=== PATIENT | female | born 1975 | race Caucasian/White ===

== ENCOUNTER 2019-10-23 11:43 | Emergency (ER) | payer BC ==
[2019-10-23] MEDS ORDERED: BABY ASPIRIN 81 MG CHEW PO ONE (11:55)
[2019-10-23] MEDS ORDERED: Nitrostat 0.4 MG (ED) SL ONE ×2 (11:55→12:00)
[2019-10-23] MEDS ORDERED: BABY ASPIRIN 81 MG CHEW ONE (12:00)
--- NOTE | 2019-10-23 12:06 | ERPHSYRPT ---
- History of Present Illness Time Seen by Provider: 10/23/19 11:54 Historian: patient Exam Limitations: no limitations Patient Subjective Stated Complaint: pt here for chest pain off and on for 4 days now, pain to epigastric area, that radiates to left breast, with chills, no fever, she states she has been off work with the [employer] she denies being under stress Triage Nursing Assessment: pt alert,with mask in place walked in, resp easy, skin w/d/p. anxious, no cough . no edema Timing/Duration: day(s) (4 days) Activities at Onset: none Quality: pressure Location: central Chest Pain Radiation: no radiation (L inferior breast) Severity of Pain-Max: none (8) Severity of Pain-Current: none (12/29) Modifying Factors: Improves With: nothing Associated Symptoms: shortness of breath, diaphoresis, No nausea, No vomiting Prior Chest Pain/Cardiac Workup: no prior chest pain Nitro Today/Relief: no nitro taken today Aspirin Treatment Today: 81 mg x 1 Allergies/Adverse Reactions: sulfamethoxazole [From Bactrim] Allergy (Verified 10/23/19 11:45) trimethoprim [From Bactrim] Allergy (Verified 10/23/19 11:45) Home Medications: Lisinopril 5 mg PO DAILY 03/13/12 [History] Hx Tetanus, Diphtheria Vaccination/Date Given: No (PT UNSURE) Hx Influenza Vaccination/Date Given: Yes Hx Pneumococcal Vaccination/Date Given: No Immunizations Up to Date: Yes Travel Risk - International Travel Have you traveled outside of the country in past 3 weeks: No Have you or anyone close to you been diagnosed with or: No Do your reside in a community with a known COVID-19 case?: Yes If Yes where:: [place] - Coronavirus Screening Has patient experienced Coronavirus symptoms: No - Review of Systems Constitutional: Chills Eyes: No Symptoms Ears, Nose, & Throat: No Symptoms Respiratory: Dyspnea Cardiac: Chest Pain, Palpitations, No Edema, No Syncope, No Orthopnea, No PND Abdominal/Gastrointestinal: No Symptoms Genitourinary Symptoms: No Symptoms Musculoskeletal: No Symptoms Skin: No Symptoms Neurological: No Symptoms Psychological: No Symptoms Endocrine: No Symptoms Hematologic/Lymphatic: No Symptoms Immunological/Allergic: No Symptoms - Past Medical History Pertinent Past Medical History: Yes Neurological History: No Pertinent History ENT History: No Pertinent History Cardiac History: Hypertension Respiratory History: No Pertinent History Endocrine Medical History: Liver Disease Musculoskeletal History: Rheumatoid Arthritis GI Medical History: GERD, Other History: No Pertinent History Psycho-Social History: No Pertinent History Female Reproductive Disorders: Other Other Medical History: fatty liver - Past Surgical History Past Surgical History: Yes Neuro Surgical History: No Pertinent History Cardiac: No Pertinent History Respiratory: No Pertinent History Gastrointestinal: Cholecystectomy Musculoskeletal: Orthopedic Surgery Female Surgical History: Section - Social History Smoking Status: Former smoker (<1ppd until 04) Exposure to second hand smoke: No Alcohol Use: None Drug Use: none Patient Lives Alone: No Significant Family History: other (Grandmother w CHF) - Female History Hx Last Menstrual Period: october 10 Hx Now: No - Nursing Vital Signs Nursing Vital Signs: Initial Vital Signs Temperature 98.3 F 10/23/19 11:48 Pulse Rate 108 H 10/23/19 11:48 Respiratory Rate 20 10/23/19 11:48 Blood Pressure 201/115 10/23/19 11:48 O2 Sat by Pulse Oximetry 100 10/23/19 11:48 Pain Scale Pain Intensity 2 - Physical Exam General Appearance: no apparent distress, anxiety Eye Exam: PERRL/EOMI, eyes nml inspection Ears, Nose, Throat Exam: normal ENT inspection, TMs normal, pharynx normal, moist mucous membranes Neck Exam: normal inspection, non-tender, supple Respiratory Exam: normal breath sounds, lungs clear, airway intact, No chest tenderness, No respiratory distress, No diminished breath sounds, No accessory muscle use, No prolonged expirations, No crackles/rales, No rhonchi, No wheezing , No stridor Cardiovascular Exam: normal heart sounds, tachycardia, capillary refill <2 sec, No murmur, No edema, No pulse deficit Gastrointestinal/Abdomen Exam: soft, normal bowel sounds, No tenderness, No distention Pelvic Exam: not done Rectal Exam: deferred Back Exam: normal inspection, normal range of motion Extremity Exam: normal inspection, normal range of motion Neurologic Exam: alert, oriented x 3, cooperative, wireless sales consultant II-XII nml as tested, nml cerebellar function, sensation nml, No motor deficits, No sensory deficit, No disoriented, No confusion Skin Exam: normal color Lymphatic Exam: No adenopathy SpO2 Interpretation: normal SpO2: 97 O2 Delivery: Room Air - Course Nursing assessment & vital signs reviewed: Yes EKG Interpreted by Me: RATE (109 sinus tach), Other (Sinus tach/Poor R wave progression/Prolonged QTc) - Radiology Exams Chest X-ray Interpretation: Interpreted by me, Negative Ordered Tests: Active Orders 24 hr Category Date Time Status EKG-ER Only STAT Care 10/23/19 11:55 Active IV Insertion STAT Care 10/23/19 11:55 Active Isolation, Initiate & Maintain Q4H Care 10/23/19 11:56 Active Pulse Oximetry (ED) STAT Care 10/23/19 11:55 Active CHEST 1 VIEW (PORTABLE) Stat Exams 10/23/19 11:56 Taken CBC W DIFF Stat Lab 10/23/19 11:45 Completed CMP Stat Lab 10/23/19 11:45 Completed D-DIMER QUANTITATIVE Stat Lab 10/23/19 11:45 Completed PROTIME WITH INR Stat Lab 10/23/19 11:45 Completed PTT Stat Lab 10/23/19 11:45 Completed TROPONIN Q3H Lab 10/23/19 11:45 Completed TROPONIN Q3H Lab 10/23/19 15:02 Completed TROPONIN Q3H Lab 10/23/19 18:00 Ordered TROPONIN Q3H Lab 10/23/19 21:00 Ordered TROPONIN Q3H Lab 10/24/19 00:00 Ordered Medication Summary Discontinued Medications Generic Name Dose Route Start Last Admin Trade Name Freq PRN Reason Stop Dose Admin Aspirin 324 mg 10/23/19 11:55 10/23/19 12:02 Baby Aspirin 81 Mg Chew PO 10/23/19 11:56 324 mg STAT ONE Administration Aspirin Confirm 10/23/19 12:00 Baby Aspirin 81 Mg Chew Administered 10/23/19 12:01 Dose 324 mg .ROUTE .STK-MED ONE Nitroglycerin 0.4 mg 10/23/19 11:55 10/23/19 12:02 Nitrostat 0.4 Mg (Ed) SL 10/23/19 11:56 0.4 mg STAT ONE Administration Nitroglycerin Confirm 10/23/19 12:00 Nitrostat 0.4 Mg (Ed) Administered 10/23/19 12:01 Dose 0.4 mg SL .STK-MED ONE Lab/Rad Data: Laboratory Result Diagrams 10/23/19 11:45 05/03/20 11:45 Laboratory Results 10/23/19 10/23/19 10/23/19 Range/Units 15:02 11:45 11:45 WBC (4.0-10.5) K/mm3 RBC (4.1-5.4) M/mm3 Hgb (12.0-16.0) gm/dl Hct (35-47) % MCV (78-100) fl MCH (26-32) pg MCHC (32-36) g/dl RDW (11.5-14.0) % Plt Count (150-450) K/mm3 MPV (7.5-11.0) fl Gran % (36.0-66.0) % Eos # (Auto) (0-0.5) Absolute Lymphs (auto) (1.0-4.6) Absolute Monos (auto) (0.0-1.3) Lymphocytes % (24.0-44.0) % Monocytes % (0.0-12.0) % Eosinophils % (0.00-5.0) % Basophils % (0.0-0.4) % Absolute Granulocytes (1.4-6.9) Basophils # (0-0.4) PT 11.1 (9.95-12.35) SECONDS INR 0.98 (0.8-3.0) APTT 28.2 (25.3-37.0) SECONDS D-Dimer 262 (215-500) ng/mL Sodium (137-145) mmol/L Potassium (3.5-5.1) mmol/L Chloride (98-107) mmol/L Carbon Dioxide (22-30) mmol/L Anion Gap (5-15) MEQ/L BUN (7-17) mg/dL Creatinine (0.52-1.04) mg/dL Estimated GFR ML/MIN Glucose (74-106) mg/dL Calcium (8.4-10.2) mg/dL Total Bilirubin (0.2-1.3) mg/dL AST (14-36) U/L ALT (0-35) U/L Alkaline Phosphatase (38-126) U/L Troponin I < 0.012 < 0.012 (0.000-0.034) ng/mL Serum Total Protein (6.3-8.2) g/dL Albumin (3.5-5.0) g/dL 10/23/19 10/23/19 Range/Units 11:45 11:45 WBC 7.9 (4.0-10.5) K/mm3 RBC 4.72 (4.1-5.4) M/mm3 Hgb 14.1 (12.0-16.0) gm/dl Hct 42.0 (35-47) % MCV 89.0 (78-100) fl MCH 29.9 (26-32) pg MCHC 33.6 (32-36) g/dl RDW 14.0 (11.5-14.0) % Plt Count 252 (150-450) K/mm3 MPV 9.5 (7.5-11.0) fl Gran % 41.6 (36.0-66.0) % Eos # (Auto) 0.19 (0-0.5) Absolute Lymphs (auto) 3.78 (1.0-4.6) Absolute Monos (auto) 0.61 (0.0-1.3) Lymphocytes % 47.8 H (24.0-44.0) % Monocytes % 7.7 (0.0-12.0) % Eosinophils % 2.4 (0.00-5.0) % Basophils % 0.5 (0.0-0.4) % Absolute Granulocytes 3.29 (1.4-6.9) Basophils # 0.04 (0-0.4) PT (9.95-12.35) SECONDS INR (0.8-3.0) APTT (25.3-37.0) SECONDS D-Dimer (215-500) ng/mL Sodium 141 (137-145) mmol/L Potassium 3.7 (3.5-5.1) mmol/L Chloride 104 (98-107) mmol/L Carbon Dioxide 25 (22-30) mmol/L Anion Gap 15.5 H (5-15) MEQ/L BUN 13 (7-17) mg/dL Creatinine 0.91 (0.52-1.04) mg/dL Estimated GFR > 60.0 ML/MIN Glucose 137 H (74-106) mg/dL Calcium 9.2 (8.4-10.2) mg/dL Total Bilirubin 0.50 (0.2-1.3) mg/dL AST 29 (14-36) U/L ALT 23 (0-35) U/L Alkaline Phosphatase 92 (38-126) U/L Troponin I (0.000-0.034) ng/mL Serum Total Protein 8.5 H (6.3-8.2) g/dL Albumin 4.3 (3.5-5.0) g/dL - Progress Progress: improved (Pain improved after 1SL NTG.) Air Movement: good Progress Note: 10/23/19 12:26 Pain decreased to 4/10 after 1SL NTG 10/23/19 15:41 Pain much improved. Troponin neg x2. Will discharge w PCP f/u. - Departure Departure Disposition: Home Clinical Impression: Chest pain Condition: Stable Critical Care Time: No Referrals: ISAI NELSON [Primary Care Provider] - Instructions: Chest Pain (DC) Additional Instructions: Follow up with your family MD next week. Return to ER for increasing or sustained chest pain or shortness of breath.
[2019-10-23 12:15] LABS: Absolute Neutrophil Ct (ANC) 3.29 (1.4-6.9); BASOPHIL % 0.5 % (0.0-0.4); Basophil (Absolute #) 0.04 (0-0.4); Eosinophil % 2.4 % (0.00-5.0); Eosinophil (Absolute #) 0.19 (0-0.5); Hemoglobin 14.1 gm/dl (12.0-16.0); Lymphocyte (Absolute #) 3.78 (1.0-4.6); Lymphocytes % 47.8 % (24.0-44.0); Mean Corpuscular Hemoglobin 29.9 pg (26-32); Mean Corpuscular Hgb Concent. 33.6 g/dl (32-36); Mean Platelet Volume 9.5 fl (7.5-11.0); Monocyte (Absolute #) 0.61 (0.0-1.3); Monocytes % 7.7 % (0.0-12.0); Neutrophil % 41.6 % (36.0-66.0); Platelet Count 252 K/mm3 (150-450); Red Blood Count 4.72 M/mm3 (4.1-5.4); White Blood Count 7.9 K/mm3 (4.0-10.5)
[2019-10-23 12:23] LABS: INR 0.98 (0.8-3.0); PROTIME 11.1 SECONDS (9.95-12.35)
[2019-10-23 12:26] LABS: PTT 28.2 SECONDS (25.3-37.0)
[2019-10-23 12:27] LABS: ALBUMIN 4.3 g/dL (3.5-5.0); ALKALINE PHOSPHATASE 92 U/L (38-126); ANION GAP 15.5 MEQ/L (5-15); BLOOD UREA NITROGEN 13 mg/dL (7-17); CHLORIDE 104 mmol/L (98-107); Calcium 9.2 mg/dL (8.4-10.2); Carbon Dioxide 25 mmol/L (22-30); Creatinine 1 0.91 mg/dL (0.52-1.04); Glucose 137 mg/dL (74-106); Potassium 3.7 mmol/L (3.5-5.1); SGOT/AST 29 U/L (14-36); SGPT/ALT 23 U/L (0-35); SODIUM 141 mmol/L (137-145); Total Protein 8.5 g/dL (6.3-8.2)
[2019-10-23 15:09] VITALS: BP 154/95; PULSE 82
[2019-10-23 15:44] VITALS: O2SAT 97
--- NOTE | 2019-10-23 20:24 | XRAY ---
Indication: Chest pain. Comparison: None Portable chest demonstrates minimal bibasilar fibrosis/scarring. Remaining heart and lungs are normal. Bony thorax intact with moderate dextroscoliosis. Impression: Nonacute chest with chronic features.
== END 2019-10-23 15:59 | disposition home or self-care (01) ==
LOC: ED 11:43
DX: R07.89 Other chest pain (principal)
CPT/HCPCS: 36000; 36415; 71045; 80053; 84484; 85025; 85379; 85610; 85730; 93005; 94760; 99284; A9270-GY

== ENCOUNTER 2019-10-28 14:16 | Emergency (ER) | payer BC ==
[2019-10-28] MEDS ORDERED: BABY ASPIRIN 81 MG CHEW PO ONE (14:45)
[2019-10-28] MEDS ORDERED: Zofran 4 MG/2 ML VIAL IV ONE (14:45)
[2019-10-28] MEDS ORDERED: MORPHINE SULFATE 4 MG INJ IV ONE (14:45)
[2019-10-28] MEDS ORDERED: BABY ASPIRIN 81 MG CHEW ONE (14:55)
[2019-10-28] MEDS ORDERED: Zofran 4 MG/2 ML VIAL ONE (14:55)
[2019-10-28] MEDS ORDERED: MORPHINE SULFATE 4 MG INJ ONE (14:55)
--- NOTE | 2019-10-28 14:58 | ERPHSYRPT ---
- History of Present Illness Time Seen by Provider: 10/28/19 14:38 Historian: patient Exam Limitations: no limitations Patient Subjective Stated Complaint: pt here for chest pain states it is more like and pressure started about 90mins ago, while riding in a car, pain is diffuse that goes down left arm and left aarm is tingling,she was here thursday for the same thing Triage Nursing Assessment: pt alert, walked in , resp easy, skin w/d/p. chest clear, no edema , moves all ext well, Physician History: 44 years old female with history of hypertension, hyperlipidemia, palpitations presented in the ER with chief complaint of chest pain which started almost 2 hours prior to arrival while she was sitting in a car. Patient described this as a pressure tightness in the center of the chest with some radiation to the left neck and jaw/arm, mild to moderate intensity without any significant aggravating or relieving factors. Denies any shortness of breath but feels heaviness on taking a deep breath. No leg swelling. Not taking any hormonal pills. Denies any long travel. Timing/Duration: today, sudden, worse Activities at Onset: activity Quality: fullness, pressure Location: substernal Chest Pain Radiation: jaw, neck, arm Severity of Pain-Max: moderate Severity of Pain-Current: moderate Modifying Factors: Improves With: nothing Associated Symptoms: denies symptoms Prior Chest Pain/Cardiac Workup: no prior cardiac workup Nitro Today/Relief: no nitro taken today Aspirin Treatment Today: no aspirin today Allergies/Adverse Reactions: sulfamethoxazole [From Bactrim] Allergy (Verified 10/28/19 14:21) trimethoprim [From Bactrim] Allergy (Verified 10/28/19 14:21) Home Medications: Lisinopril 10 mg PO DAILY 03/13/12 [History] Hx Tetanus, Diphtheria Vaccination/Date Given: No (PT UNSURE) Hx Influenza Vaccination/Date Given: Yes Hx Pneumococcal Vaccination/Date Given: No Travel Risk - International Travel Have you traveled outside of the country in past 3 weeks: No Have you or anyone close to you been diagnosed with or: No Do your reside in a community with a known COVID-19 case?: Yes If Yes where:: [place] - Coronavirus Screening Has patient experienced Coronavirus symptoms: No - Review of Systems Constitutional: No Symptoms Eyes: No Symptoms Ears, Nose, & Throat: No Symptoms Respiratory: No Symptoms Cardiac: No Symptoms, Chest Pain Abdominal/Gastrointestinal: No Symptoms Genitourinary Symptoms: No Symptoms Musculoskeletal: No Symptoms Skin: No Symptoms Neurological: No Symptoms Psychological: Anxiety Endocrine: No Symptoms Hematologic/Lymphatic: No Symptoms Immunological/Allergic: No Symptoms - Past Medical History Pertinent Past Medical History: Yes Neurological History: No Pertinent History ENT History: No Pertinent History Cardiac History: Hypertension Respiratory History: No Pertinent History Endocrine Medical History: Liver Disease Musculoskeletal History: Rheumatoid Arthritis GI Medical History: GERD, Other History: No Pertinent History Psycho-Social History: No Pertinent History Female Reproductive Disorders: Other Other Medical History: fatty liver - Past Surgical History Past Surgical History: Yes Neuro Surgical History: No Pertinent History Cardiac: No Pertinent History Respiratory: No Pertinent History Gastrointestinal: Cholecystectomy Musculoskeletal: Orthopedic Surgery Female Surgical History: Section - Social History Smoking Status: Former smoker Exposure to second hand smoke: No Alcohol Use: None Drug Use: none Patient Lives Alone: No Significant Family History: other (Grandmother w CHF) - Female History Hx Last Menstrual Period: october 10 Hx Now: No - Nursing Vital Signs Nursing Vital Signs: Initial Vital Signs Temperature 98.0 F 10/28/19 14:23 Pulse Rate 94 H 10/28/19 14:23 Respiratory Rate 18 10/28/19 14:23 Blood Pressure 133/67 10/28/19 14:23 O2 Sat by Pulse Oximetry 100 10/28/19 14:23 Pain Scale Pain Intensity 5 - Physical Exam General Appearance: no apparent distress Eye Exam: PERRL/EOMI, eyes nml inspection Ears, Nose, Throat Exam: normal ENT inspection, TMs normal, pharynx normal Neck Exam: normal inspection, non-tender, supple, full range of motion Respiratory Exam: normal breath sounds, lungs clear, No chest tenderness Cardiovascular Exam: regular rate/rhythm, normal heart sounds, normal peripheral pulses Gastrointestinal/Abdomen Exam: soft, normal bowel sounds, No tenderness Back Exam: normal inspection, normal range of motion Extremity Exam: normal inspection, normal range of motion Neurologic Exam: alert, oriented x 3, cooperative Skin Exam: normal color, warm SpO2 Interpretation: normal SpO2: 100 O2 Delivery: Room Air - Course Nursing assessment & vital signs reviewed: Yes EKG Interpreted by Me: RATE (96), Sinus Rhythm, NORMAL AXIS, NORMAL INTERVALS, NORMAL QRS Ordered Tests: Active Orders 24 hr Category Date Time Status CHEST 1 VIEW (PORTABLE) Stat Exams 10/28/19 14:46 Completed CBC W DIFF Stat Lab 10/28/19 14:45 Completed CMP Stat Lab 10/28/19 15:00 Completed D-DIMER QUANTITATIVE Stat Lab 10/28/19 15:00 Completed HCG QUALITATIVE,SERUM Stat Lab 10/28/19 15:00 Completed NT PRO BNP Stat Lab 10/28/19 15:00 Completed TROPONIN Q3H Lab 10/28/19 15:00 Completed TROPONIN Q3H Lab 10/28/19 17:00 Completed TROPONIN Q3H Lab 10/28/19 19:45 Ordered TROPONIN Q3H Lab 10/28/19 22:45 Ordered TROPONIN Q3H Lab 10/29/19 02:45 Ordered Medication Summary Discontinued Medications Generic Name Dose Route Start Last Admin Trade Name Freq PRN Reason Stop Dose Admin Aspirin 324 mg 10/28/19 14:45 10/28/19 14:57 Baby Aspirin 81 Mg Chew PO 10/28/19 14:46 324 mg STAT ONE Administration Aspirin Confirm 10/28/19 14:55 Baby Aspirin 81 Mg Chew Administered 10/28/19 14:56 Dose 324 mg .ROUTE .STK-MED ONE Morphine Sulfate 4 mg 10/28/19 14:45 10/28/19 14:58 Morphine Sulfate 4 Mg Inj IV 10/28/19 14:46 4 mg STAT ONE Administration Morphine Sulfate Confirm 10/28/19 14:55 Morphine Sulfate 4 Mg Inj Administered 10/28/19 14:56 Dose 4 mg .ROUTE .STK-MED ONE Ondansetron HCl 4 mg 10/28/19 14:45 10/28/19 14:58 Zofran 4 Mg/2 Ml Vial IV 10/28/19 14:46 4 mg STAT ONE Administration Ondansetron HCl Confirm 10/28/19 14:55 Zofran 4 Mg/2 Ml Vial Administered 10/28/19 14:56 Dose 4 mg .ROUTE .STK-MED ONE Lab/Rad Data: Laboratory Result Diagrams 10/28/19 14:45 10/28/19 15:00 Laboratory Results 10/28/19 10/28/19 10/28/19 Range/Units 17:00 15:00 15:00 WBC (4.0-10.5) K/mm3 RBC (4.1-5.4) M/mm3 Hgb (12.0-16.0) gm/dl Hct (35-47) % MCV (78-100) fl MCH (26-32) pg MCHC (32-36) g/dl RDW (11.5-14.0) % Plt Count (150-450) K/mm3 MPV (7.5-11.0) fl Gran % (36.0-66.0) % Eos # (Auto) (0-0.5) Absolute Lymphs (auto) (1.0-4.6) Absolute Monos (auto) (0.0-1.3) Lymphocytes % (24.0-44.0) % Monocytes % (0.0-12.0) % Eosinophils % (0.00-5.0) % Basophils % (0.0-0.4) % Absolute Granulocytes (1.4-6.9) Basophils # (0-0.4) D-Dimer < 177 L (215-500) ng/mL Sodium (137-145) mmol/L Potassium (3.5-5.1) mmol/L Chloride (98-107) mmol/L Carbon Dioxide (22-30) mmol/L Anion Gap (5-15) MEQ/L BUN (7-17) mg/dL Creatinine (0.52-1.04) mg/dL Estimated GFR ML/MIN Glucose (74-106) mg/dL Calcium (8.4-10.2) mg/dL Total Bilirubin (0.2-1.3) mg/dL AST (14-36) U/L ALT (0-35) U/L Alkaline Phosphatase (38-126) U/L Troponin I < 0.012 (0.000-0.034) ng/mL NT-Pro-B Natriuret Pep (0-450) pg/mL Serum Total Protein (6.3-8.2) g/dL Albumin (3.5-5.0) g/dL Serum , Qual NEGATIVE (Negative) 10/28/19 10/28/19 10/28/19 Range/Units 15:00 15:00 14:45 WBC 8.3 (4.0-10.5) K/mm3 RBC 4.66 (4.1-5.4) M/mm3 Hgb 13.9 (12.0-16.0) gm/dl Hct 42.0 (35-47) % MCV 90.1 (78-100) fl MCH 29.8 (26-32) pg MCHC 33.1 (32-36) g/dl RDW 14.1 H (11.5-14.0) % Plt Count 255 (150-450) K/mm3 MPV 9.5 (7.5-11.0) fl Gran % 45.2 (36.0-66.0) % Eos # (Auto) 0.20 (0-0.5) Absolute Lymphs (auto) 3.50 (1.0-4.6) Absolute Monos (auto) 0.83 (0.0-1.3) Lymphocytes % 42.0 (24.0-44.0) % Monocytes % 10.0 (0.0-12.0) % Eosinophils % 2.4 (0.00-5.0) % Basophils % 0.4 (0.0-0.4) % Absolute Granulocytes 3.77 (1.4-6.9) Basophils # 0.03 (0-0.4) D-Dimer (215-500) ng/mL Sodium 139 (137-145) mmol/L Potassium 4.1 (3.5-5.1) mmol/L Chloride 105 (98-107) mmol/L Carbon Dioxide 25 (22-30) mmol/L Anion Gap 13.3 (5-15) MEQ/L BUN 13 (7-17) mg/dL Creatinine 0.92 (0.52-1.04) mg/dL Estimated GFR > 60.0 ML/MIN Glucose 102 (74-106) mg/dL Calcium 8.8 (8.4-10.2) mg/dL Total Bilirubin 0.60 (0.2-1.3) mg/dL AST 31 (14-36) U/L ALT 23 (0-35) U/L Alkaline Phosphatase 81 (38-126) U/L Troponin I < 0.012 (0.000-0.034) ng/mL NT-Pro-B Natriuret Pep 51.6 (0-450) pg/mL Serum Total Protein 7.8 (6.3-8.2) g/dL Albumin 4.0 (3.5-5.0) g/dL Serum , Qual (Negative) - Progress Progress: improved, re-examined Air Movement: good Progress Note: 10/28/19 ruled out acute coronary syndrome, pulmonary embolism, pneumonia, pneumothorax, very low suspicion for dissection. Patient currently has Holter monitor for 2 weeks as she has a history of palpitations. At this point I do not think patient needs to be admitted and her chest pain seems to be nonspecific. I have advised her to follow-up with her litigation paralegal in [facility] which she would. Discussed signs symptoms of worsening needing return to ER which she seems understanding. Blood Culture(s) Obtained: No Antibiotics given: No Counseled pt/family regarding: lab results, diagnosis, need for follow-up, rad results, smoking cessation - Departure Departure Disposition: Home Clinical Impression: Atypical chest pain Condition: Stable Critical Care Time: No Critical Care Time(excluding separately billable procedures): Critical 30-74 mins Referrals: FRANCES WALLS MD [Primary Care Provider] - Instructions: Atypical Chest Pain, Chest Pain (DC) Additional Instructions: Take Tylenol as needed for pain. Follow-up with your primary care and cardiology for reevaluation early next week. Return to ER for persistent chest pain palpitations or shortness of breath.
[2019-10-28 15:17] LABS: Absolute Neutrophil Ct (ANC) 3.77 (1.4-6.9); BASOPHIL % 0.4 % (0.0-0.4); Basophil (Absolute #) 0.03 (0-0.4); Eosinophil % 2.4 % (0.00-5.0); Hemoglobin 13.9 gm/dl (12.0-16.0); Mean Cell Volume 90.1 fl (78-100); Mean Corpuscular Hemoglobin 29.8 pg (26-32); Mean Corpuscular Hgb Concent. 33.1 g/dl (32-36); Mean Platelet Volume 9.5 fl (7.5-11.0); Monocyte (Absolute #) 0.83 (0.0-1.3); Neutrophil % 45.2 % (36.0-66.0); Platelet Count 255 K/mm3 (150-450); Red Blood Count 4.66 M/mm3 (4.1-5.4); Red Cell Distribution Width 14.1 % (11.5-14.0); White Blood Count 8.3 K/mm3 (4.0-10.5)
[2019-10-28 15:41] LABS: ALKALINE PHOSPHATASE 81 U/L (38-126); ANION GAP 13.3 MEQ/L (5-15); BLOOD UREA NITROGEN 13 mg/dL (7-17); CHLORIDE 105 mmol/L (98-107); Calcium 8.8 mg/dL (8.4-10.2); Carbon Dioxide 25 mmol/L (22-30); Creatinine 1 0.92 mg/dL (0.52-1.04); Glucose 102 mg/dL (74-106); NT PRO BNP 51.6 pg/mL (0-450); Potassium 4.1 mmol/L (3.5-5.1); SGOT/AST 31 U/L (14-36); SGPT/ALT 23 U/L (0-35); SODIUM 139 mmol/L (137-145); Total Protein 7.8 g/dL (6.3-8.2)
--- NOTE | 2019-10-28 16:23 | XRAY ---
Indication: Chest pain 1 week. Comparison: October 23, 2019. Portable chest unchanged again demonstrating minimal bibasilar fibrosis/scarring. Remaining heart and lungs normal. Bony thorax intact again with dextroscoliosis. No new/acute findings.
[2019-10-28 17:06] VITALS: O2SAT 100
[2019-10-28 18:02] VITALS: BP 140/77; PULSE 87
== END 2019-10-28 18:10 | disposition home or self-care (01) ==
LOC: ED 14:16
DX: R07.89 Other chest pain (principal); I10 Essential (primary) hypertension; M06.9 Rheumatoid arthritis, unspecified; K21.9 Gastro-esophageal reflux disease without esophagitis; K76.9 Liver disease, unspecified; Z72.0 Tobacco use; Z79.899 Other long term (current) drug therapy
CPT/HCPCS: 36415; 71045; 80053; 81025; 83880; 84484; 85025; 85379; 96374; 96375; 99284; 99291; J2270; J2405; A9270-GY

== ENCOUNTER 2020-01-21 13:09 | Emergency (ER) | payer BC ==
[2020-01-21] MEDS ORDERED: BABY ASPIRIN 81 MG CHEW PO ONE (13:25)
--- NOTE | 2020-01-21 13:35 | ERPHSYRPT ---
- History of Present Illness Time Seen by Provider: 01/21/20 13:12 Historian: patient Exam Limitations: no limitations Physician History: 44 years old female with history of hypertension, hyperlipidemia, anxiety, palpitations presented to the ER with chief complaint of chest tightness pressure for the last 2 hours without any significant aggravating or relieving factors. Pain is similar to previous episodes. Patient has recently seen vocational ed instructor and has Lexiscan done and does not know the results yet. Denies fever chills or cough. Timing/Duration: today, hour(s) (2), sudden Activities at Onset: rest Quality: fullness, pressure, tightness Location: substernal Chest Pain Radiation: no radiation Severity of Pain-Max: moderate Severity of Pain-Current: mild Modifying Factors: Improves With: nothing Associated Symptoms: denies symptoms Prior Chest Pain/Cardiac Workup: stress test Nitro Today/Relief: no nitro taken today Aspirin Treatment Today: no aspirin today Allergies/Adverse Reactions: sulfamethoxazole [From Bactrim] Allergy (Verified 01/21/20 13:15) trimethoprim [From Bactrim] Allergy (Verified 01/21/20 13:15) Home Medications: Lisinopril 40 mg PO DAILY 03/13/12 [History] Bupropion HCl [Wellbutrin] 1 tab PO DAILY 01/21/20 [History] Hx Tetanus, Diphtheria Vaccination/Date Given: No (PT UNSURE) Hx Influenza Vaccination/Date Given: Yes Hx Pneumococcal Vaccination/Date Given: No - Review of Systems Constitutional: No Symptoms Eyes: No Symptoms Ears, Nose, & Throat: No Symptoms Respiratory: No Symptoms Cardiac: Chest Pain Abdominal/Gastrointestinal: No Symptoms Genitourinary Symptoms: No Symptoms Musculoskeletal: No Symptoms Skin: No Symptoms Neurological: No Symptoms Psychological: No Symptoms Endocrine: No Symptoms Hematologic/Lymphatic: No Symptoms Immunological/Allergic: No Symptoms - Past Medical History Pertinent Past Medical History: Yes Neurological History: No Pertinent History ENT History: No Pertinent History Cardiac History: Hypertension Respiratory History: No Pertinent History Endocrine Medical History: Liver Disease Musculoskeletal History: Rheumatoid Arthritis GI Medical History: GERD, Other History: No Pertinent History Psycho-Social History: No Pertinent History Female Reproductive Disorders: Other Other Medical History: fatty liver - Past Surgical History Past Surgical History: Yes Neuro Surgical History: No Pertinent History Cardiac: No Pertinent History Respiratory: No Pertinent History Gastrointestinal: Cholecystectomy Musculoskeletal: Orthopedic Surgery Female Surgical History: Section - Social History Smoking Status: Former smoker Exposure to second hand smoke: No Alcohol Use: None Drug Use: none Patient Lives Alone: No Significant Family History: other (Grandmother w CHF) - Female History Hx Now: (UNKN) - Nursing Vital Signs Nursing Vital Signs: Initial Vital Signs Temperature 98.0 F 01/21/20 13:17 Pulse Rate 98 H 01/21/20 13:17 Respiratory Rate 18 01/21/20 13:17 Blood Pressure 159/104 01/21/20 13:17 O2 Sat by Pulse Oximetry 100 01/21/20 13:17 Pain Scale Pain Intensity 0 - Physical Exam General Appearance: no apparent distress Eye Exam: PERRL/EOMI Ears, Nose, Throat Exam: normal ENT inspection, pharynx normal Neck Exam: normal inspection, supple, full range of motion Respiratory Exam: normal breath sounds, lungs clear Cardiovascular Exam: regular rate/rhythm, normal heart sounds Gastrointestinal/Abdomen Exam: soft, normal bowel sounds Back Exam: normal inspection, normal range of motion Extremity Exam: normal inspection, normal range of motion Neurologic Exam: alert, oriented x 3, cooperative Skin Exam: normal color SpO2 Interpretation: normal SpO2: 99 - Course Nursing assessment & vital signs reviewed: Yes EKG Interpreted by Me: RATE ([id number]), Sinus Tach, NORMAL AXIS, NORMAL INTERVALS, NORMAL QRS Ordered Tests: Active Orders 24 hr Category Date Time Status Belt Notcher STAT Care 01/21/20 13:21 Completed EKG-ER Only STAT Care 01/21/20 13:20 Completed IV Insertion STAT Care 01/21/20 13:20 Completed Pulse Oximetry (ED) STAT Care 01/21/20 13:21 Completed CHEST 1 VIEW (PORTABLE) Stat Exams 01/21/20 13:26 Completed CBC W DIFF Stat Lab 01/21/20 14:00 Completed CMP Stat Lab 01/21/20 14:00 Completed D-DIMER QUANTITATIVE Stat Lab 01/21/20 14:00 Completed HCG,QUALITATIVE URINE Routine Lab 01/21/20 14:00 Completed NT PRO BNP Stat Lab 01/21/20 14:00 Completed TROPONIN Q3H Lab 01/21/20 14:00 Completed TROPONIN Q3H Lab 01/21/20 16:40 Completed Medication Summary Discontinued Medications Generic Name Dose Route Start Last Admin Trade Name Freq PRN Reason Stop Dose Admin Aspirin 324 mg 01/21/20 13:25 01/21/20 13:43 Baby Aspirin 81 Mg Chew PO 01/21/20 13:26 324 mg STAT ONE Administration Aspirin Confirm 01/21/20 13:42 Baby Aspirin 81 Mg Chew Administered 01/21/20 13:43 Dose 324 mg .ROUTE .STK-MED ONE Lab/Rad Data: Laboratory Result Diagrams 01/21/20 14:00 01/21/20 14:00 Laboratory Results 01/21/20 01/21/20 01/21/20 Range/Units 16:40 14:00 14:00 WBC (4.0-10.5) K/mm3 RBC (4.1-5.4) M/mm3 Hgb (12.0-16.0) gm/dl Hct (35-47) % MCV (78-100) fl MCH (26-32) pg MCHC (32-36) g/dl RDW (11.5-14.0) % Plt Count (150-450) K/mm3 MPV (7.5-11.0) fl Gran % (36.0-66.0) % Eos # (Auto) (0-0.5) Absolute Lymphs (auto) (1.0-4.6) Absolute Monos (auto) (0.0-1.3) Lymphocytes % (24.0-44.0) % Monocytes % (0.0-12.0) % Eosinophils % (0.00-5.0) % Basophils % (0.0-0.4) % Absolute Granulocytes (1.4-6.9) Basophils # (0-0.4) D-Dimer (215-500) ng/mL Sodium (137-145) mmol/L Potassium (3.5-5.1) mmol/L Chloride (98-107) mmol/L Carbon Dioxide (22-30) mmol/L Anion Gap (5-15) MEQ/L BUN (7-17) mg/dL Creatinine (0.52-1.04) mg/dL Estimated GFR ML/MIN Glucose (74-106) mg/dL Calcium (8.4-10.2) mg/dL Total Bilirubin (0.2-1.3) mg/dL AST (14-36) U/L ALT (0-35) U/L Alkaline Phosphatase (38-126) U/L Troponin I < 0.012 < 0.012 (0.000-0.034) ng/mL NT-Pro-B Natriuret Pep (0-450) pg/mL Serum Total Protein (6.3-8.2) g/dL Albumin (3.5-5.0) g/dL Urine HCG, Qual NEGATIVE 01/21/20 01/21/20 01/21/20 Range/Units 14:00 14:00 14:00 WBC 9.3 (4.0-10.5) K/mm3 RBC 4.65 (4.1-5.4) M/mm3 Hgb 13.8 (12.0-16.0) gm/dl Hct 42.2 (35-47) % MCV 90.8 (78-100) fl MCH 29.7 (26-32) pg MCHC 32.7 (32-36) g/dl RDW 13.7 (11.5-14.0) % Plt Count 281 (150-450) K/mm3 MPV 10.0 (7.5-11.0) fl Gran % 53.0 (36.0-66.0) % Eos # (Auto) 0.27 (0-0.5) Absolute Lymphs (auto) 3.34 (1.0-4.6) Absolute Monos (auto) 0.70 (0.0-1.3) Lymphocytes % 36.1 (24.0-44.0) % Monocytes % 7.6 (0.0-12.0) % Eosinophils % 2.9 (0.00-5.0) % Basophils % 0.4 (0.0-0.4) % Absolute Granulocytes 4.90 (1.4-6.9) Basophils # 0.04 (0-0.4) D-Dimer 313 (215-500) ng/mL Sodium 138 (137-145) mmol/L Potassium 4.3 (3.5-5.1) mmol/L Chloride 104 (98-107) mmol/L Carbon Dioxide 25 (22-30) mmol/L Anion Gap 12.7 (5-15) MEQ/L BUN 12 (7-17) mg/dL Creatinine 1.01 (0.52-1.04) mg/dL Estimated GFR > 60.0 ML/MIN Glucose 103 (74-106) mg/dL Calcium 9.4 (8.4-10.2) mg/dL Total Bilirubin 0.70 (0.2-1.3) mg/dL AST 35 (14-36) U/L ALT 25 (0-35) U/L Alkaline Phosphatase 73 (38-126) U/L Troponin I (0.000-0.034) ng/mL NT-Pro-B Natriuret Pep 103 (0-450) pg/mL Serum Total Protein 7.8 (6.3-8.2) g/dL Albumin 4.2 (3.5-5.0) g/dL Urine HCG, Qual 01/21/20 Range/Units 13:38 WBC (4.0-10.5) K/mm3 RBC (4.1-5.4) M/mm3 Hgb (12.0-16.0) gm/dl Hct (35-47) % MCV (78-100) fl MCH (26-32) pg MCHC (32-36) g/dl RDW (11.5-14.0) % Plt Count (150-450) K/mm3 MPV (7.5-11.0) fl Gran % (36.0-66.0) % Eos # (Auto) (0-0.5) Absolute Lymphs (auto) (1.0-4.6) Absolute Monos (auto) (0.0-1.3) Lymphocytes % (24.0-44.0) % Monocytes % (0.0-12.0) % Eosinophils % (0.00-5.0) % Basophils % (0.0-0.4) % Absolute Granulocytes (1.4-6.9) Basophils # (0-0.4) D-Dimer (215-500) ng/mL Sodium (137-145) mmol/L Potassium (3.5-5.1) mmol/L Chloride (98-107) mmol/L Carbon Dioxide (22-30) mmol/L Anion Gap (5-15) MEQ/L BUN (7-17) mg/dL Creatinine (0.52-1.04) mg/dL Estimated GFR ML/MIN Glucose (74-106) mg/dL Calcium (8.4-10.2) mg/dL Total Bilirubin (0.2-1.3) mg/dL AST (14-36) U/L ALT (0-35) U/L Alkaline Phosphatase (38-126) U/L Troponin I (0.000-0.034) ng/mL NT-Pro-B Natriuret Pep (0-450) pg/mL Serum Total Protein (6.3-8.2) g/dL Albumin (3.5-5.0) g/dL Urine HCG, Qual Cancelled - Progress Progress: improved Air Movement: good Progress Note: I have ruled out acute coronary syndrome, pulmonary embolism, pneumonia, pneumothorax. I have reviewed her nuclear stress test done last week which is negative. Patient's presentation is more of atypical and have some element of anxiety. She is advised to follow-up with her primary care and cardiology. She is offered symptomatic relief which she did not want it. Stable for discharge. Blood Culture(s) Obtained: No Antibiotics given: No Counseled pt/family regarding: lab results, diagnosis, need for follow-up, rad results - Departure Departure Disposition: Home Clinical Impression: Atypical chest pain Condition: Stable Critical Care Time: No Referrals: FRANCES WALLS MD [Primary Care Provider] - Follow Up with PCP/3 days Instructions: Angina (DC), Chest Pain (DC) Additional Instructions: follow up with PCP and your vocational ed instructor for re evaluation in 2-3 days. return to ER for any worsening
[2020-01-21] MEDS ORDERED: BABY ASPIRIN 81 MG CHEW ONE (13:42)
[2020-01-21 14:05] LABS: BASOPHIL % 0.4 % (0.0-0.4); Basophil (Absolute #) 0.04 (0-0.4); Eosinophil % 2.9 % (0.00-5.0); Eosinophil (Absolute #) 0.27 (0-0.5); Hematocrit 42.2 % (35-47); Hemoglobin 13.8 gm/dl (12.0-16.0); Lymphocyte (Absolute #) 3.34 (1.0-4.6); Lymphocytes % 36.1 % (24.0-44.0); Mean Cell Volume 90.8 fl (78-100); Mean Corpuscular Hemoglobin 29.7 pg (26-32); Mean Corpuscular Hgb Concent. 32.7 g/dl (32-36); Monocytes % 7.6 % (0.0-12.0); Platelet Count 281 K/mm3 (150-450); Red Blood Count 4.65 M/mm3 (4.1-5.4); Red Cell Distribution Width 13.7 % (11.5-14.0); White Blood Count 9.3 K/mm3 (4.0-10.5)
[2020-01-21 14:29] LABS: ALBUMIN 4.2 g/dL (3.5-5.0); ALKALINE PHOSPHATASE 73 U/L (38-126); ANION GAP 12.7 MEQ/L (5-15); BLOOD UREA NITROGEN 12 mg/dL (7-17); CHLORIDE 104 mmol/L (98-107); Calcium 9.4 mg/dL (8.4-10.2); Carbon Dioxide 25 mmol/L (22-30); Creatinine 1 1.01 mg/dL (0.52-1.04); Glucose 103 mg/dL (74-106); NT PRO BNP 103 pg/mL (0-450); Potassium 4.3 mmol/L (3.5-5.1); SGOT/AST 35 U/L (14-36); SGPT/ALT 25 U/L (0-35); SODIUM 138 mmol/L (137-145); Total Protein 7.8 g/dL (6.3-8.2)
--- NOTE | 2020-01-21 16:58 | XRAY ---
Indication: Chest pain. Comparison: Oct, 2019. Portable apical lordotic chest again demonstrates minimal bibasilar fibrosis/scarring and tiny left midlung calcified granuloma. No focal infiltrate, consolidation, or large effusion. Heart is not enlarged for AP portable technique. Bony thorax intact again with mild degenerative spondylosis and dextrorotoscoliosis. Impression: Continued nonacute chest with chronic features.
[2020-01-21 17:11] VITALS: BP 130/82; PULSE 81
[2020-01-22 00:40] VITALS: O2SAT 99
== END 2020-01-21 17:22 | disposition home or self-care (01) ==
LOC: ED 13:09
DX: R07.89 Other chest pain (principal); I10 Essential (primary) hypertension; E78.5 Hyperlipidemia, unspecified; F41.9 Anxiety disorder, unspecified; M06.9 Rheumatoid arthritis, unspecified; K76.0 Fatty (change of) liver, not elsewhere classified
CPT/HCPCS: 36000; 36415; 71045; 80053; 83880; 84484; 84703; 85025; 85379; 93005; 93041; 94760; 99284; A9270-GY

== ENCOUNTER 2020-05-12 19:14 | Emergency (ER) | payer BC ==
[2020-05-12] MEDS ORDERED: Sodium Chloride 0.9% 1000 ML 1,000 ML IV STA (19:38)
[2020-05-12] MEDS ORDERED: Sodium Chloride 0.9% 1000 ML 1,000 ML ONE (19:51)
[2020-05-12 19:54] LABS: Absolute Neutrophil Ct (ANC) 7.13 (1.4-6.9); BASOPHIL % 0.2 % (0.0-0.4); Basophil (Absolute #) 0.03 (0-0.4); Eosinophil % 1.6 % (0.00-5.0); Eosinophil (Absolute #) 0.19 (0-0.5); Hemoglobin 13.2 gm/dl (12.0-16.0); Lymphocyte (Absolute #) 3.94 (1.0-4.6); Lymphocytes % 32.6 % (24.0-44.0); Mean Cell Volume 90.5 fl (78-100); Mean Corpuscular Hemoglobin 29.9 pg (26-32); Mean Platelet Volume 9.9 fl (7.5-11.0); Monocytes % 6.6 % (0.0-12.0); Platelet Count 271 K/mm3 (150-450); Red Blood Count 4.42 M/mm3 (4.1-5.4); Red Cell Distribution Width 13.6 % (11.5-14.0); White Blood Count 12.1 K/mm3 (4.0-10.5)
--- NOTE | 2020-05-12 19:58 | ERPHSYRPT ---
- History of Present Illness Time Seen by Provider: 05/12/20 19:55 Historian: patient Exam Limitations: no limitations Patient Subjective Stated Complaint: "My heart beat is fast." Triage Nursing Assessment: Patient presented alert et oriented x3 answering questions appropriately without obvious dyspnea. Patient reported a roughly 1-2 hour onset of palpitations and anterior chest pain. Pain is located at the anterior superior chest, constant in durations, characterized as sharp and burning, non-radiating, without alleviating/aggravating factors. rated 6/10. Denied shortness of breath, nausea/vomiting/diarrhea, or dizziness. Pupils 3mm brisk direct and consensual reaction. Oral mucosa pink/moist. Neck supple non- tender without JVD. Symmetrical chest expansion. Heart tones tachycardic S1 S2 without extra sounds. Lungs clear with adequate airflow. Abdomen obese non- distended non-tender. No noted dependent edema. Peripheral pulses +2 bilateral. Physician History: "My heart beat is fast." 5-year-old female came to the emergency room with complaining of palpitation started early afternoon today. Patient has this problem off and on for last few months for which she has underwent Cardiolite stress test echocardiogram and Holter monitor which did not reveal occasional atrial tachycardia. Patient has been put on metoprolol and lisinopril and being followed by shell core and molding supervisor for ongoing work-up. She feels heaviness in her chest but she denies any diaphoresis nausea vomiting abdominal pain or chest pain which is radiating to the shoulder or neck. Timing/Duration: today Activities at Onset: none Quality: fullness Chest Pain Radiation: no radiation Severity of Pain-Max: mild Severity of Pain-Current: mild Modifying Factors: Improves With: nothing Associated Symptoms: denies symptoms Prior Chest Pain/Cardiac Workup: non-cardiac, echocardiography, stress test, recently seen/treated (by shell core and molding supervisor) Nitro Today/Relief: no nitro taken today Aspirin Treatment Today: no aspirin today Allergies/Adverse Reactions: sulfamethoxazole [From Bactrim] Allergy (Verified 05/12/20 19:16) trimethoprim [From Bactrim] Allergy (Verified 05/12/20 19:16) Home Medications: Lisinopril 40 mg PO DAILY 03/13/12 [History] Bupropion HCl [Wellbutrin] 1 tab PO DAILY 01/21/20 [History] Atorvastatin Calcium 1 tab PO DAILY 05/12/20 [History] Metoprolol Tartrate 1 tab PO DAILY 05/12/20 [History] Norgestimate-Ethinyl Estradiol [Sprintec 28 Day Tablet] 1 tab PO DAILY 05/12/20 [History] Omeprazole 1 tab PO DAILY 05/12/20 [History] Hx Tetanus, Diphtheria Vaccination/Date Given: No (PT UNSURE) Hx Influenza Vaccination/Date Given: Yes Hx Pneumococcal Vaccination/Date Given: No Travel Risk - International Travel Have you traveled outside of the country in past 3 weeks: No - Coronavirus Screening Are you exhibiting any of the following symptoms?: No Close contact with a COVID-19 positive Pt in past 14-21 Days: No - Review of Systems Constitutional: No Fever, No Chills Eyes: No Symptoms Ears, Nose, & Throat: No Symptoms Respiratory: No Cough, No Dyspnea Cardiac: Palpitations, No Chest Pain, No Edema, No Syncope Abdominal/Gastrointestinal: No Abdominal Pain, No Nausea, No Vomiting, No Diarrhea Genitourinary Symptoms: No Dysuria Musculoskeletal: No Back Pain, No Neck Pain Skin: No Rash Neurological: No Dizziness, No Focal Weakness, No Sensory Changes Psychological: No Symptoms Endocrine: No Symptoms All Other Systems: Reviewed and Negative - Past Medical History Pertinent Past Medical History: Yes Neurological History: No Pertinent History ENT History: No Pertinent History Cardiac History: Hypertension Respiratory History: No Pertinent History Endocrine Medical History: Liver Disease Musculoskeletal History: Rheumatoid Arthritis GI Medical History: GERD, Other History: No Pertinent History Psycho-Social History: No Pertinent History Female Reproductive Disorders: Other Other Medical History: fatty liver - Past Surgical History Past Surgical History: Yes Neuro Surgical History: No Pertinent History Cardiac: No Pertinent History Respiratory: No Pertinent History Gastrointestinal: Cholecystectomy Musculoskeletal: Orthopedic Surgery Female Surgical History: Section - Social History Smoking Status: Former smoker Exposure to second hand smoke: No Alcohol Use: None Drug Use: none Patient Lives Alone: No Significant Family History: other (Grandmother w CHF) - Female History Hx Now: No - Nursing Vital Signs Nursing Vital Signs: Initial Vital Signs Temperature 98.5 F 05/12/20 19:15 Pulse Rate 114 H 05/12/20 19:15 Respiratory Rate 18 05/12/20 19:15 Blood Pressure 162/94 05/12/20 19:15 O2 Sat by Pulse Oximetry 99 05/12/20 19:15 Pain Scale Pain Intensity 3 - Physical Exam General Appearance: no apparent distress, alert Eye Exam: PERRL/EOMI, eyes nml inspection Ears, Nose, Throat Exam: normal ENT inspection, moist mucous membranes Neck Exam: normal inspection, non-tender, supple, full range of motion Respiratory Exam: normal breath sounds, lungs clear, No respiratory distress Cardiovascular Exam: regular rate/rhythm, normal heart sounds Gastrointestinal/Abdomen Exam: soft, No tenderness, No mass Back Exam: normal inspection, No CVA tenderness, No vertebral tenderness Extremity Exam: normal inspection, normal range of motion Neurologic Exam: alert, oriented x 3, cooperative, normal mood/affect, sensation nml, No motor deficits Skin Exam: normal color, warm, dry SpO2: 99 - Course Nursing assessment & vital signs reviewed: Yes EKG Interpreted by Me: Sinus Rhythm - Radiology Exams Chest X-ray Interpretation: Reviewed by me, Negative, No Pneumonia Ordered Tests: Active Orders 24 hr Category Date Time Status CHEST 1 VIEW (PORTABLE) Stat Exams 05/12/20 19:38 Ordered CBC W DIFF Stat Lab 05/12/20 19:30 Completed CMP Stat Lab 05/12/20 19:30 Completed TROPONIN Q3H Lab 05/12/20 19:30 Completed TROPONIN Q3H Lab 05/12/20 22:45 Ordered TROPONIN Q3H Lab 05/13/20 01:45 Ordered TROPONIN Q3H Lab 05/13/20 04:45 Ordered TROPONIN Q3H Lab 05/13/20 07:45 Ordered Medication Summary Discontinued Medications Generic Name Dose Route Start Last Admin Trade Name Lashaq PRN Reason Stop Dose Admin Sodium Chloride 1,000 mls @ 999 mls/hr 05/12/20 19:38 05/12/20 19:53 Sodium Chloride 0.9% 1000 Ml IV 05/12/20 20:38 999 mls/hr .Q1H1M STA Administration Sodium Chloride Confirm 05/12/20 19:51 Sodium Chloride 0.9% 1000 Ml Administered 05/12/20 19:52 Dose 1,000 mls @ ud .ROUTE .K-MED ONE Lab/Rad Data: Laboratory Result Diagrams 05/12/20 19:30 05/12/20 19:30 Laboratory Results 05/12/20 05/12/20 05/12/20 Range/Units 19:30 19:30 19:30 WBC 12.1 H (4.0-10.5) K/mm3 RBC 4.42 (4.1-5.4) M/mm3 Hgb 13.2 (12.0-16.0) gm/dl Hct 40.0 (35-47) % MCV 90.5 (78-100) fl MCH 29.9 (26-32) pg MCHC 33.0 (32-36) g/dl RDW 13.6 (11.5-14.0) % Plt Count 271 (150-450) K/mm3 MPV 9.9 (7.5-11.0) fl Gran % 59.0 (36.0-66.0) % Eos # (Auto) 0.19 (0-0.5) Absolute Lymphs (auto) 3.94 (1.0-4.6) Absolute Monos (auto) 0.80 (0.0-1.3) Lymphocytes % 32.6 (24.0-44.0) % Monocytes % 6.6 (0.0-12.0) % Eosinophils % 1.6 (0.00-5.0) % Basophils % 0.2 (0.0-0.4) % Absolute Granulocytes 7.13 H (1.4-6.9) Basophils # 0.03 (0-0.4) Sodium 139 (137-145) mmol/L Potassium 3.9 (3.5-5.1) mmol/L Chloride 105 (98-107) mmol/L Carbon Dioxide 24 (22-30) mmol/L Anion Gap 12.9 (5-15) MEQ/L BUN 18 H (7-17) mg/dL Creatinine 1.05 H (0.52-1.04) mg/dL Estimated GFR > 60.0 ML/MIN Glucose 117 H (74-106) mg/dL Calcium 9.3 (8.4-10.2) mg/dL Total Bilirubin 0.40 (0.2-1.3) mg/dL AST 29 (14-36) U/L ALT 23 (0-35) U/L Alkaline Phosphatase 63 (38-126) U/L Troponin I < 0.012 (0.000-0.034) ng/mL Serum Total Protein 7.7 (6.3-8.2) g/dL Albumin 4.2 (3.5-5.0) g/dL - Progress Progress: improved Air Movement: good Blood Culture(s) Obtained: No Antibiotics given: No Counseled pt/family regarding: lab results, diagnosis, need for follow-up, rad results - Departure Departure Disposition: Home Clinical Impression: Palpitations, Atypical chest pain Condition: Stable Critical Care Time: Yes Critical Care Time(excluding separately billable procedures): Critical 30-74 mins Referrals: FRANCES WALLS MD [Primary Care Provider] - Follow Up with PCP/3 days Instructions: Arrhythmias (DC), Palpitations (DC) Additional Instructions: Discharge/Care Plan LE BIANCHI was seen on 05/12/20 in the Emergency Room. The patient was counseled regarding Diagnosis,Lab results, Imaging studies, need for follow up and when to return to the Emergency Room. Prescriptions given: Discharge Note I have spoken with the patient and/or caregivers. I have explained the patient's condition, diagnosis and treatment plan based on the information available to me at this time. I have answered the patient's and/or caregiver's questions and addressed any concerns. The patient and/or caregivers have as good understanding of the patient's diagnosis, condition and treatment plan as can be expected at this point. The vital signs have been stable. The patient's condition is stable and appropriate for discharge from the emergency department. The patient will pursue further outpatient evaluation with the primary care physician or other designated or consulting physician as outlined in the discharge instructions. The patient and/or caregivers are agreeable to this plan of care and follow-up instructions have been explained in detail. The patient and/or caregivers have received these instruction. The patient/and or caregivers are aware that any significant change in condition or worsening of symptoms should prompt an immediate return to this or the closest emergency department or call 911. LE BIANCHI was seen on 05/12/20 n the Emergency Room. At that time you were treated for an emergent condition, during your visit Laboratory, Radiology and/or other procedures may have been ordered. It is very important that you follow-up with your Primary Care Physician FRANCES WALLS MD within the next 24-48 hours to review your Emergency Room visit and the final results of testing that was ordered. Some test results such as Urine Cultures, Blood Cultures, and other cultures if ordered will not be finalized for 24-48 hours. If you do not have a Primary Care Provider please call the medical records department at [phone] ext [phone] to obtain a copy of your results or you may sign into our patient portal to obtain these results by visiting us @ [email or web address] and completing the following steps: 1. Click on the Patient Portal link 2. Click the Patient Self Enrollment Link to complete the enrollment form and entering your 3. Once the enrollment form is completed you will receive an email with a temporary ID and password at the email address you provided. 4. Next choose a user name and password. Your user name must be at least 4 characters long and your password must be at least 4 characters long. 5. Choose a security question from the list and provide your answer to the question. If you already have signed into the Health Portal you may access your Health Care Information 12/01 by the following steps: 1. Login to our website @ [email or web address] 2. Enter your original user name and password. FAQS The [facility] Health Portal is an online tool that contains your Lab Results, Radiology Reports, Visit History, Discharge Instructions and Health Summary Lab and Radiology Results will not be available for 72 hours on the portal. The Portal is a secure site, passwords are encryted and URLs are re-written so t hey cannot be copied and pasted. You and authorized family members are the only ones who can access your Portal. Also there is a timeout feature that protects your information if you leave the Portal page open. If you have technical difficulty please use the Contact Us link on the page this will allow you to submit any questions you have regarding the Portal or you may contact the Medical Record Department at [phone] ext [phone].
[2020-05-12 20:04] LABS: ALBUMIN 4.2 g/dL (3.5-5.0); ALKALINE PHOSPHATASE 63 U/L (38-126); ANION GAP 12.9 MEQ/L (5-15); BLOOD UREA NITROGEN 18 mg/dL (7-17); CHLORIDE 105 mmol/L (98-107); Calcium 9.3 mg/dL (8.4-10.2); Carbon Dioxide 24 mmol/L (22-30); Creatinine 1 1.05 mg/dL (0.52-1.04); EST GLOMERULAR FILTRATION RATE > 60.0 ML/MIN; Glucose 117 mg/dL (74-106); Potassium 3.9 mmol/L (3.5-5.1); SGOT/AST 29 U/L (14-36); SGPT/ALT 23 U/L (0-35); SODIUM 139 mmol/L (137-145); Total Protein 7.7 g/dL (6.3-8.2)
[2020-05-12 20:56] VITALS: BP 121/65; PULSE 88; O2SAT 97
--- NOTE | 2020-05-13 08:00 | XRAY ---
Indication: Palpitations. Comparison: January 21, 2020. Portable apical lordotic chest again demonstrates minimal left base subsegmental atelectasis/scarring and left midlung calcified granuloma. No focal infiltrate, consolidation, or large effusion. Heart is not enlarged. Bony thorax intact again with degenerative changes and scoliosis. Impression: Nonacute chest with chronic features.
== END 2020-05-12 21:07 | disposition home or self-care (01) ==
LOC: ED 19:14
DX: R00.2 Palpitations (principal); R07.89 Other chest pain; Z79.899 Other long term (current) drug therapy; I10 Essential (primary) hypertension
CPT/HCPCS: 36000; 36415; 71045; 80053; 84484; 85025; 99284; 99291

== ENCOUNTER 2020-12-02 08:26 | Emergency (ER) | payer BC ==
[2020-12-02 08:41] VITALS: BP 170/88; PULSE 89; O2SAT 99
[2020-12-02] MEDS ORDERED: Norflex 60 MG/2 ML ONE (08:51)
[2020-12-02] MEDS: Norflex 60 MG/2 ML IM ONE (08:51)
--- NOTE | 2020-12-02 08:54 | ERPHSYRPT ---
- History of Present Illness Time Seen by Provider: 12/02/20 08:50 Source: patient Exam Limitations: no limitations Patient Subjective Stated Complaint: pt reports left mid back pain for approx 1.5 weeks, pain increased with movement. pt denies injury or accident. Triage Nursing Assessment: pt is aox3, pupils perrl, afebrile, resps easy and non labored, radial pulses strong and equal, cap refill < 3 seconds, pt skin pink warm dry. pt ROM, sensation intact, pt ambulatory to trt room with slow, steady gait. no obvious injury/deformity noted. Physician History: Hx RA treated and followed by PCP. No hx trauma. No Abd pain, no Fever, No spinal procedures or IV drug use. abd nontender without peritoneal signs or masses. No spinal tenderness. Left paraspinous muscle spasm. Neuro is intact. no radicular pain. No urinary symptoms but will check urine as a precaution. No hx cancer. will try lido patch and one time norflex. Timing/Duration: day(s) Method of Injury: other (no known injury) Quality: burning, dull Back Pain Location: paraspinous muscles Severity of Pain-Max: moderate Severity of Pain-Current: moderate Modifying Factors: Improves With: movement Associated Symptoms: denies symptoms, lower back pain, muscle spasms, No fever, No urinary incontinence, No loss of bowel control, No nausea, No vomiting, No dizziness, No numbness in legs/feet, No weakness, No sensory/motor loss, No tingling in legs/feet Previous symptoms: same symptoms as today Allergies/Adverse Reactions: sulfamethoxazole [From Bactrim] Allergy (Verified 12/02/20 08:41) trimethoprim [From Bactrim] Allergy (Verified 12/02/20 08:41) Home Medications: Lisinopril 40 mg PO DAILY 03/13/12 [History] Bupropion HCl [Wellbutrin] 1 tab PO DAILY 01/21/20 [History] Metoprolol Tartrate 1 tab PO DAILY 05/12/20 [History] Omeprazole 1 tab PO DAILY 05/12/20 [History] Certolizumab Pegol [Cimzia] 400 mg SQ UD 12/02/20 [History] Hx Tetanus, Diphtheria Vaccination/Date Given: Yes Hx Influenza Vaccination/Date Given: Yes Hx Pneumococcal Vaccination/Date Given: No Immunizations Up to Date: Yes Travel Risk - International Travel Have you traveled outside of the country in past 3 weeks: No - Coronavirus Screening Are you exhibiting any of the following symptoms?: No Close contact with a COVID-19 positive Pt in past 14-21 Days: No - Vaccine Status Have you recieved a Covid-19 vaccination: No - Review of Systems Constitutional: No Fever, No Chills Eyes: No Symptoms Ears, Nose, & Throat: No Symptoms Respiratory: No Cough, No Dyspnea Cardiac: No Chest Pain, No Edema, No Syncope Abdominal/Gastrointestinal: No Abdominal Pain, No Nausea, No Vomiting, No Diarrhea Genitourinary Symptoms: Flank Pain, No Dysuria, No Frequency, No Incontinence, No Urinary Retention Musculoskeletal: Back Pain, No Neck Pain, No Fall, No Injury Skin: No Symptoms, No Rash Neurological: No Symptoms, No Dizziness, No Focal Weakness, No Headache, No Parasthesia, No Sensory Changes Psychological: No Symptoms Endocrine: No Symptoms Hematologic/Lymphatic: No Symptoms Immunological/Allergic: No Symptoms All Other Systems: Reviewed and Negative - Past Medical History Pertinent Past Medical History: Yes Neurological History: No Pertinent History ENT History: No Pertinent History Cardiac History: Hypertension Respiratory History: No Pertinent History Endocrine Medical History: Liver Disease Musculoskeletal History: Rheumatoid Arthritis GI Medical History: GERD, Other History: No Pertinent History Psycho-Social History: No Pertinent History Female Reproductive Disorders: Other Other Medical History: fatty liver - Past Surgical History Past Surgical History: Yes Neuro Surgical History: No Pertinent History Cardiac: No Pertinent History Respiratory: No Pertinent History Gastrointestinal: Cholecystectomy Musculoskeletal: Orthopedic Surgery Female Surgical History: Section - Social History Smoking Status: Former smoker Exposure to second hand smoke: No Alcohol Use: None Drug Use: none, marijuana Patient Lives Alone: No Significant Family History: other (Grandmother w CHF) - Female History Hx Last Menstrual Period: 11/16/20 Hx Now: No - Nursing Vital Signs Nursing Vital Signs: Initial Vital Signs Temperature 98.1 F 12/02/20 08:29 Pulse Rate 89 12/02/20 08:29 Respiratory Rate 18 12/02/20 08:29 Blood Pressure 170/88 12/02/20 08:29 O2 Sat by Pulse Oximetry 99 12/02/20 08:29 Pain Scale Pain Intensity 10 - Physical Exam General Appearance: no apparent distress, alert Eye Exam: PERRL/EOMI, eyes nml inspection Ears, Nose, Throat Exam: normal ENT inspection Neck Exam: normal inspection, non-tender, supple, full range of motion, No meningismus, No midline tenderness Respiratory Exam: normal breath sounds, lungs clear, No respiratory distress Cardiovascular Exam: regular rate/rhythm, normal heart sounds Gastrointestinal Exam: soft, No tenderness, No mass Pelvic Exam: deferred Rectal Exam: deferred Back Exam: normal inspection, normal range of motion, muscle spasm, No CVA tenderness, No vertebral tenderness, No point tenderness Extremity Exam: normal inspection, normal range of motion, No calf tenderness, No pedal edema Peripheral Pulses: carotid (R): 2+, carotid (L): 2+, femoral (R): 2+, femoral (L): 2+, dorsalis-pedis (R): 2+, dorsalis-pedis (L): 2+ Neurologic Exam: alert, oriented x 3, cooperative, diamond assorter II-XII nml as tested, normal mood/affect, nml station & gait, sensation nml, No motor deficits Skin Exam: normal color, warm, dry, No rash SpO2 Interpretation: normal SpO2: 99 O2 Delivery: Room Air - Course Nursing assessment & vital signs reviewed: Yes Ordered Tests: Active Orders 24 hr Category Date Time Status UA W/RFX UR CULTURE Stat Lab 12/02/20 08:54 Completed Medication Summary Discontinued Medications Generic Name Dose Route Start Last Admin Trade Name Prem PRN Reason Stop Dose Admin Lidocaine 1 patch 12/02/20 09:29 Lidoderm Patch 5% TOP 12/02/20 09:30 STAT ONE Orphenadrine Citrate 60 mg 12/02/20 08:48 12/02/20 08:51 Norflex 60 Mg/2 Ml IM 12/02/20 08:49 60 mg STAT ONE Administration Orphenadrine Citrate Confirm 12/02/20 08:51 Norflex 60 Mg/2 Ml Administered 12/02/20 08:52 Dose 60 mg .ROUTE .[facility] Lab/Rad Data: Laboratory Results 12/02/20 Range/Units 08:54 Urine Color YELLOW (YELLOW) Urine Appearance CLEAR (CLEAR) Urine pH 5.0 (5-6) Ur Specific [place] 1.010 (1.005-1.025) Urine Protein NEGATIVE (Negative) Urine Ketones NEGATIVE (NEGATIVE) Urine Blood SMALL (0-5) Vikash/ul Urine Nitrite NEGATIVE (NEGATIVE) Urine Bilirubin NEGATIVE (NEGATIVE) Urine Urobilinogen NEGATIVE (0-1) mg/dL Ur Leukocyte Esterase NEGATIVE (NEGATIVE) Urine WBC (Auto) 0-2 (0-5) /HPF Urine RBC (Auto) 0-2 (0-2) /HPF U Epithel Cells (Auto) RARE (FEW) /HPF Urine Bacteria (Auto) RARE (NEGATIVE) /HPF Urine Mucus (Auto) SLIGHT (NEGATIVE) /HPF Urine Culture Reflexed NO (NO) Urine Glucose NEGATIVE (NEGATIVE) mg/dL - Progress Progress: improved, re-examined Progress Note: 12/02/20 10:02 pt relates that she has had kidney stones and has some they are watching , but does not feel like they usually do at this time - but she will followup with her DrEdgar this week. Counseled pt/family regarding: lab results, diagnosis, need for follow-up - Departure Departure Disposition: Home Clinical Impression: Acute myofascial strain of lumbar region, Hematuria Condition: Good Critical Care Time: No Referrals: FRANCES WALLS MD [Primary Care Provider] - Instructions: Low Back Pain (DC), Blood in the Urine (Hematuria), Adult (DC) Additional Instructions: Follow-up blood pressure and trace of blood in urine with your Dr. Your kidney stones may also be the source of the trace blood , but it should still be checked out with your Drs. Use over the counter lidocaine patches to help with the pain ( follow directions on box). Followup with your Dr. this week. Stop the other muscle relaxer ( tinazidine - zaniflex) ) for a few days while using the new muscle relaxer ( Norflex - orphenidrine) . Return meantime if not improving or fever, abdominal pain , bowel or bladder symptoms , vomiting, weakness of legs or any other symptoms of concern. Prescriptions: Orphenadrine Citrate 100 mg [Norflex 100 MG Tablet] 100 mg PO BID #14 tab
[2020-12-02 09:35] LABS: Appearance CLEAR (CLEAR); Bacteria RARE /HPF (NEGATIVE); Bilirubin NEGATIVE (NEGATIVE); Blood SMALL Ery/ul (0-5); Epithelial Cells RARE /HPF (FEW); Glucose NEGATIVE (NEGATIVE); Ketones NEGATIVE (NEGATIVE); Leukocyte Esterase NEGATIVE (NEGATIVE); Mucus SLIGHT /HPF (NEGATIVE); Nitrite NEGATIVE (NEGATIVE); Protein,Urine Dip NEGATIVE (Negative); RBC 0-2 /HPF (0-2); Urobilinogen NEGATIVE mg/dL (0-1); WBC 0-2 /HPF (0-5)
[2020-12-02] MEDS: Lidoderm Patch 5% TOP ONE (09:40)
== END 2020-12-02 10:09 | disposition home or self-care (01) ==
LOC: ED 08:26
DX: S39.012A Strain of muscle, fascia and tendon of lower back, initial encounter (principal); R31.9 Hematuria, unspecified; Z87.442 Personal history of urinary calculi
CPT/HCPCS: 81001; 96372; 99284; J2360; A9270-GY

== ENCOUNTER 2021-01-06 20:04 | Emergency (ER) | payer BC ==
--- NOTE | 2021-01-06 20:38 | ERPHSYRPT ---
- History of Present Illness Time Seen by Provider: 01/06/21 20:09 Historian: patient Exam Limitations: no limitations Patient Subjective Stated Complaint: Patient states " I was out picking vegetables and I felt like my heart was racing and I tried to calm myself down but nothing was working and my fiance brought me in." Triage Nursing Assessment: Patient ambulated back to room with steady gait and independently. Patient A/O times 4. Patient states she had 2 panic attacks yesterday but she was able to control them but admits she hasn't had this many ever. Patient appeared calm. No tearfulness or SOB voiced. Patient denies any chest pain. Central color good. Patient tone calm. Patient stated she felt like her heart was racing. Pulse rate upon arrival 88-98 and regular. Patient noted to be fidgeting with hands/fingers. Patient states she doesn't want anything done and she knows it is not her heart but her boyfriend made her came in. Lungs clear bilateral A/P throughout. No S/S of respiratory distress noted. Cap refill < 3 seconds. Patient states she does take medication for anxiety but it doesn't seem to be helping last couple of days. Physician History: 45 years old female with history of anxiety/panic attacks presented in the ER with sudden onset feeling of racing of heart while she was outside picking vegetable. Patient reports throat closing sensation and feeling as if everything was closing on her along with shortness of breath and chest pressure. It lasted for almost half an hour and started to improve. Patient reports having similar symptoms multiple times in the past with anxiety attacks. Patient was forced to come by her fianc. EKG showed normal sinus rhythm with no acute ST elevations. Patient does not want anything to be done and is back to her baseline with her heart rate in the 80s and 90s while in the ER. Denies any chest pain palpitations or shortness of breath at present. Timing/Duration: hour(s) (1), resolved prior to arrival Activities at Onset: activity Associated Symptoms: palpitations, shortness of breath Prior Chest Pain/Cardiac Workup: non-cardiac Nitro Today/Relief: no nitro taken today Aspirin Treatment Today: no aspirin today Allergies/Adverse Reactions: sulfamethoxazole [From Bactrim] Allergy (Intermediate, Verified 01/06/21 20:11) Nausea and Vomiting trimethoprim [From Bactrim] Allergy (Intermediate, Verified 01/06/21 20:11) Nausea and Vomiting Home Medications: Lisinopril 40 mg PO DAILY 03/13/12 [History] Bupropion HCl [Wellbutrin] 1 tab PO DAILY 01/21/20 [History] Metoprolol Tartrate 1 tab PO BID 05/12/20 [History] Omeprazole 2 tab PO DAILY 05/12/20 [History] Certolizumab Pegol [Cimzia] 400 mg SQ UD 12/02/20 [History] Hx Tetanus, Diphtheria Vaccination/Date Given: No Hx Influenza Vaccination/Date Given: Yes Hx Pneumococcal Vaccination/Date Given: No Immunizations Up to Date: Yes Travel Risk - International Travel Have you traveled outside of the country in past 3 weeks: No - Coronavirus Screening Are you exhibiting any of the following symptoms?: No Close contact with a COVID-19 positive Pt in past 14-21 Days: No - Vaccine Status Have you recieved a Covid-19 vaccination: No - Review of Systems Constitutional: No Symptoms Eyes: No Symptoms Ears, Nose, & Throat: No Symptoms Respiratory: Dyspnea Cardiac: Palpitations Abdominal/Gastrointestinal: No Symptoms Genitourinary Symptoms: No Symptoms Musculoskeletal: No Symptoms Neurological: No Symptoms Psychological: Anxiety Endocrine: No Symptoms Hematologic/Lymphatic: No Symptoms Immunological/Allergic: No Symptoms - Past Medical History Pertinent Past Medical History: Yes Neurological History: No Pertinent History ENT History: No Pertinent History Cardiac History: Hypertension Respiratory History: No Pertinent History Endocrine Medical History: Liver Disease Musculoskeletal History: Rheumatoid Arthritis GI Medical History: GERD, Other History: No Pertinent History Psycho-Social History: No Pertinent History Female Reproductive Disorders: Other Other Medical History: fatty liver - Past Surgical History Past Surgical History: Yes Neuro Surgical History: No Pertinent History Cardiac: No Pertinent History Respiratory: No Pertinent History Gastrointestinal: Cholecystectomy Genitourinary: No Pertinent History Musculoskeletal: Orthopedic Surgery Female Surgical History: Section - Social History Smoking Status: Former smoker Exposure to second hand smoke: Yes Alcohol Use: None Drug Use: none Patient Lives Alone: No Significant Family History: other (Grandmother w CHF) - Female History Hx Last Menstrual Period: Tubal Hx Now: No - Nursing Vital Signs Nursing Vital Signs: Initial Vital Signs Temperature 98.6 F 01/06/21 20:14 Pulse Rate 97 H 01/06/21 20:14 Respiratory Rate 22 01/06/21 20:14 Blood Pressure 169/99 01/06/21 20:14 O2 Sat by Pulse Oximetry 98 01/06/21 20:14 Pain Scale Pain Intensity 0 - Physical Exam General Appearance: no apparent distress, alert, anxiety Eye Exam: PERRL/EOMI, eyes nml inspection Ears, Nose, Throat Exam: normal ENT inspection, TMs normal, pharynx normal Neck Exam: normal inspection, supple, full range of motion Respiratory Exam: normal breath sounds, lungs clear Cardiovascular Exam: regular rate/rhythm, normal heart sounds Gastrointestinal/Abdomen Exam: soft, No tenderness Back Exam: normal inspection, normal range of motion Extremity Exam: normal inspection, normal range of motion, pelvis stable Neurologic Exam: alert, oriented x 3, cooperative, patent clerk II-XII nml as tested, nml cerebellar function, nml station & gait, sensation nml Skin Exam: normal color SpO2 Interpretation: normal SpO2: 98 O2 Delivery: Room Air - Course EKG Interpreted by Me: RATE (94), Sinus Rhythm, NORMAL AXIS, NORMAL INTERVALS, Non-specific ST Changes - Progress Progress: improved Air Movement: good Progress Note: 01/06/21 20:38 On my evaluation patient is asymptomatic. EKG normal sinus rhythm. Not tachypneic or tachycardic. I have offered her work-up but she refused. Patient's states her symptoms are similar to previous and does not think it is cardiac/pulmonary region and does not want any work-up done and wants to go home. Patient is counseled but still does not want to have any kind of work-up done. Discussed missing diagnosis of acute coronary syndrome, pulmonary embolism, pneumonia, pneumothorax but she is adamant about leaving. With her previous history and symptoms lasting for such a short duration I think it is okay and is being discharged with outpatient follow-up. Discussed signs symptoms of worsening needing return to ER which she seems understanding. Blood Culture(s) Obtained: No Antibiotics given: No Counseled pt/family regarding: diagnosis, need for follow-up - Departure Departure Disposition: Home Clinical Impression: Anxiety attack Condition: Stable Critical Care Time: No Referrals: FRANCES WALLS MD [Primary Care Provider] - (1-2 days for reevaluation) Instructions: Anxiety, Adult (DC) Additional Instructions: Follow-up with primary care for reevaluation. Return to ER if headache did not have worsening palpitation with chest pain/shortness of breath etc. Continue with your current medications.
[2021-01-06 20:43] VITALS: PULSE 86
[2021-01-06 20:47] VITALS: BP 143/91
[2021-01-06 22:39] VITALS: O2SAT 98
== END 2021-01-06 20:47 | disposition home or self-care (01) ==
LOC: ED 20:04
DX: F41.9 Anxiety disorder, unspecified (principal)
CPT/HCPCS: 99283

== ENCOUNTER 2022-03-05 08:25 | Emergency (ER) | payer BC, OTHER ==
[2022-03-05] MEDS ORDERED: BABY ASPIRIN 81 MG CHEW PO ONE (08:46)
[2022-03-05] MEDS ORDERED: Zofran 4 MG/2 ML VIAL IV ONE (08:47)
[2022-03-05] MEDS ORDERED: MORPHINE SULFATE 4 MG INJ IV ONE (08:47)
--- NOTE | 2022-03-05 08:52 | ERPHSYRPT ---
- History of Present Illness Historian: patient Exam Limitations: no limitations Patient Subjective Stated Complaint: Chest pain Triage Nursing Assessment: Patient brought back to ED per w/c and transferred self to bed. Patient A+O X3. Patient's skin pink, warm and dry. Patient complains of chest pain on and off for the past 4 days. Patient states she woke up with pressure in chest going into her neck and pain down her left arm 5/10. Patient complains of being lightheaded and dizziness. Physician History: 46 yo wf w L lateral chest pain x 4 days. Pain is 5/10, radiates to her L shoulder and neck, and nothing makes it better or worse. Pain is occasionally sharp. Pt has been dyspneic and diaphoretic wo N/V. Cough/fever are denied. Pt has a h/o HTN but denies DM/hyperlipidemia/tobacco use/MO-CAD/PE-DVT. She only took 81mg ASA today. Timing/Duration: other (4 days) Quality: pressure, sharpness Location: substernal Chest Pain Radiation: jaw, arm Severity of Pain-Max: moderate Severity of Pain-Current: moderate Modifying Factors: Improves With: nothing Associated Symptoms: shortness of breath, diaphoresis, No nausea, No vomiting, No palpitations, No heartburn, No abdominal pain, No cough, No hurts to breathe, No chills, No fever, No fatigue, No weakness, No swelling/lump in chest, No syncope, No rash, No headache, No dizziness, No edema, No back pain Prior Chest Pain/Cardiac Workup: non-cardiac Nitro Today/Relief: no nitro taken today Aspirin Treatment Today: 81 mg x 1 Allergies/Adverse Reactions: sulfamethoxazole [From Bactrim] Allergy (Intermediate, Verified 03/05/22 08:29) Nausea and Vomiting trimethoprim [From Bactrim] Allergy (Intermediate, Verified 03/05/22 08:29) Nausea and Vomiting Home Medications: Lisinopril 40 mg PO DAILY 03/13/12 [History] buPROPion HCL [Wellbutrin] 1 tab PO DAILY 01/21/20 [History] Metoprolol Tartrate 1 tab PO BID 05/12/20 [History] Omeprazole 2 tab PO DAILY 05/12/20 [History] Certolizumab Pegol [Cimzia] 400 mg SQ UD 12/02/20 [History] Hx Tetanus, Diphtheria Vaccination/Date Given: No Hx Influenza Vaccination/Date Given: Yes Hx Pneumococcal Vaccination/Date Given: No Immunizations Up to Date: Yes Travel Risk - International Travel Have you traveled outside of the country in past 3 weeks: No - Coronavirus Screening Are you exhibiting any of the following symptoms?: No Close contact with a COVID-19 positive Pt in past 14-21 Days: No - Vaccine Status Have you recieved a Covid-19 vaccination: No - Review of Systems Constitutional: No Symptoms Eyes: No Symptoms Ears, Nose, & Throat: No Symptoms Respiratory: No Symptoms Cardiac: No Symptoms, Chest Pain Abdominal/Gastrointestinal: No Symptoms Genitourinary Symptoms: No Symptoms Musculoskeletal: No Symptoms Skin: No Symptoms Neurological: No Symptoms Psychological: No Symptoms Endocrine: No Symptoms Hematologic/Lymphatic: No Symptoms Immunological/Allergic: No Symptoms - Past Medical History Pertinent Past Medical History: Yes Neurological History: No Pertinent History ENT History: No Pertinent History Cardiac History: Hypertension Respiratory History: No Pertinent History Endocrine Medical History: Liver Disease Musculoskeletal History: Rheumatoid Arthritis GI Medical History: GERD, Other History: No Pertinent History Psycho-Social History: No Pertinent History Female Reproductive Disorders: Other Other Medical History: fatty liver - Past Surgical History Past Surgical History: Yes Neuro Surgical History: No Pertinent History Cardiac: No Pertinent History Respiratory: No Pertinent History Gastrointestinal: Cholecystectomy Genitourinary: No Pertinent History Musculoskeletal: Orthopedic Surgery Female Surgical History: Section - Social History Smoking Status: Former smoker Exposure to second hand smoke: Yes Alcohol Use: None Drug Use: none Patient Lives Alone: No Significant Family History: other (Grandmother w CHF) - Female History Hx Last Menstrual Period: Last month Hx Now: No - Nursing Vital Signs Nursing Vital Signs: Initial Vital Signs Temperature 97.3 F 03/05/22 08:30 Pulse Rate 127 H 03/05/22 08:30 Respiratory Rate 18 03/05/22 08:30 Blood Pressure 163/105 03/05/22 08:30 O2 Sat by Pulse Oximetry 98 03/05/22 08:30 Pain Scale Pain Intensity 5 Hypertensive - Physical Exam General Appearance: no apparent distress, anxiety Eye Exam: PERRL/EOMI, eyes nml inspection Ears, Nose, Throat Exam: normal ENT inspection, TMs normal, pharynx normal, moist mucous membranes Neck Exam: normal inspection, non-tender, supple, full range of motion, No meningismus, No mass, No Brudzinski, No Kernig's, No carotid bruit Respiratory Exam: normal breath sounds, lungs clear, airway intact Cardiovascular Exam: tachycardia, capillary refill <2 sec, No murmur Gastrointestinal/Abdomen Exam: soft, normal bowel sounds, No tenderness Back Exam: normal inspection, normal range of motion, No CVA tenderness Extremity Exam: normal inspection, normal range of motion Neurologic Exam: alert, oriented x 3, cooperative, director of collections and archives II-XII nml as tested, normal mood/affect, nml cerebellar function, nml station & gait, sensation nml, No motor deficits, No sensory deficit Skin Exam: normal color, warm, dry Lymphatic Exam: No adenopathy SpO2 Interpretation: normal SpO2: 98 O2 Delivery: Room Air - Course EKG Interpreted by Me: RATE (123/Sinus tach/Prolonged QTc/Poor R wave progression/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) - Radiology Exams Chest X-ray Interpretation: Discussed w/ radiologist (Bibasilar atelectasis) - CT Exams Chest CT Interpretation: Discussed w/radiologist (CTA chest-No PE/GHOSH) Ordered Tests: Active Orders 24 hr Category Date Time Status Polymerization Engineer STAT Care 03/05/22 08:40 Completed EKG-ER Only STAT Care 03/05/22 08:40 Completed IV Insertion STAT Care 03/05/22 08:40 Completed CHEST 1 VIEW (PORTABLE) Stat Exams 03/05/22 08:40 Completed CHEST WITH CONTRAST [CT] Stat Exams 03/05/22 11:57 Completed CBC W DIFF Stat Lab 03/05/22 08:40 Completed CMP Stat Lab 03/05/22 08:40 Completed D-DIMER QUANTITATIVE Stat Lab 03/05/22 Completed NT PRO BNP Stat Lab 03/05/22 08:40 Completed PROTIME WITH INR Stat Lab 03/05/22 08:40 Completed PTT Stat Lab 03/05/22 08:40 Completed TROPONIN Q4H Lab 03/05/22 08:40 Completed TROPONIN Q4H Lab 03/05/22 11:04 Completed TROPONIN Q4H Lab 03/05/22 16:45 Ordered Medication Summary Discontinued Medications Generic Name Dose Route Start Last Admin Trade Name Freq PRN Reason Stop Dose Admin Aspirin 324 mg 03/05/22 08:46 03/05/22 08:54 Aspirin 81 Mg Tab.Chew PO 03/05/22 08:47 324 mg STAT ONE Administration Aspirin Confirm 03/05/22 08:53 Aspirin 81 Mg Tab.Chew Administered 03/05/22 08:54 Dose 324 mg .ROUTE .STK-MED ONE Ketorolac Tromethamine 15 mg 03/05/22 14:20 03/05/22 14:29 Ketorolac Tromethamine 30 Mg/Ml Inj IV 03/05/22 14:21 15 mg STAT ONE Administration Ketorolac Tromethamine Confirm 03/05/22 14:29 Ketorolac Tromethamine 30 Mg/Ml Inj Administered 03/05/22 14:30 Dose 30 mg .ROUTE .STK-MED ONE Morphine Sulfate 4 mg 03/05/22 08:47 03/05/22 08:55 Morphine Sulfate 4 Mg/Ml Injection IV 03/05/22 08:48 4 mg STAT ONE Administration Morphine Sulfate Confirm 03/05/22 08:53 Morphine Sulfate 4 Mg/Ml Injection Administered 03/05/22 08:54 Dose 4 mg .ROUTE .STK-MED ONE Ondansetron HCl 4 mg 03/05/22 08:47 03/05/22 08:54 Ondansetron Hcl 4 Mg/2 Ml Vial IV 03/05/22 08:48 4 mg STAT ONE Administration Ondansetron HCl Confirm 03/05/22 08:53 Ondansetron Hcl 4 Mg/2 Ml Vial Administered 03/05/22 08:54 Dose 4 mg .ROUTE .STK-MED ONE Lab/Rad Data: Laboratory Result Diagrams 03/05/22 08:40 03/05/22 08:40 Laboratory Results 03/05/22 03/05/22 03/05/22 Range/Units Unknown 11:04 08:40 WBC (4.0-10.5) x10^3/uL RBC (4.1-5.4) x10^6/uL Hgb (12.0-16.0) g/dL Hct (35-47) % MCV (78-100) fL MCH (26-32) pg MCHC (32-36) g/dL RDW (11.5-14.0) % Plt Count (150-450) x10^3/uL MPV (7.5-11.0) fL Gran % (36.0-66.0) % Immature Gran % (Auto) (0.00-0.4) % Nucleat RBC Rel Count (0.00-0.1) % Eos # (Auto) (0-0.5) x10^3/uL Immature Gran # (Auto) (0.00-0.03) x10^3u/L Absolute Lymphs (auto) (1.0-4.6) x10^3/uL Absolute Monos (auto) (0.0-1.3) x10^3/uL Absolute Nucleated RBC (0.00-0.01) x10^3u/L Lymphocytes % (24.0-44.0) % Monocytes % (0.0-12.0) % Eosinophils % (0.00-5.0) % Basophils % (0.0-0.4) % Absolute Granulocytes (1.4-6.9) x10^3/uL Basophils # (0-0.4) x10^3/uL PT (9.4-12.5) SECONDS INR (0.8-3.0) APTT (25.1-36.5) SECONDS D-Dimer 0.43 (0.0-0.50) mg/L Sodium (137-145) mmol/L Potassium (3.5-5.1) mmol/L Chloride (98-107) mmol/L Carbon Dioxide (22-30) mmol/L Anion Gap (5-15) MEQ/L BUN (7-17) mg/dL Creatinine (0.52-1.04) mg/dL Estimated GFR ML/MIN Glucose (74-106) mg/dL Calcium (8.4-10.2) mg/dL Total Bilirubin (0.2-1.3) mg/dL AST (14-36) U/L ALT (0-35) U/L Alkaline Phosphatase (38-126) U/L Troponin I < 0.012 < 0.012 (0.000-0.034) ng/mL NT-Pro-B Natriuret Pep (0-450) pg/mL Serum Total Protein (6.3-8.2) g/dL Albumin (3.5-5.0) g/dL 03/05/22 03/05/22 03/05/22 Range/Units 08:40 08:40 08:40 WBC 8.6 (4.0-10.5) x10^3/uL RBC 4.53 (4.1-5.4) x10^6/uL Hgb 12.5 (12.0-16.0) g/dL Hct 38.6 (35-47) % MCV 85.2 (78-100) fL MCH 27.6 (26-32) pg MCHC 32.4 (32-36) g/dL RDW 14.6 H (11.5-14.0) % Plt Count 327 (150-450) x10^3/uL MPV 9.5 (7.5-11.0) fL Gran % 58.4 (36.0-66.0) % Immature Gran % (Auto) 1.7 H (0.00-0.4) % Nucleat RBC Rel Count 0.0 (0.00-0.1) % Eos # (Auto) 0.18 (0-0.5) x10^3/uL Immature Gran # (Auto) 0.15 H (0.00-0.03) x10^3u/L Absolute Lymphs (auto) 2.61 (1.0-4.6) x10^3/uL Absolute Monos (auto) 0.59 (0.0-1.3) x10^3/uL Absolute Nucleated RBC 0.00 (0.00-0.01) x10^3u/L Lymphocytes % 30.2 (24.0-44.0) % Monocytes % 6.8 (0.0-12.0) % Eosinophils % 2.1 (0.00-5.0) % Basophils % 0.8 (0.0-0.4) % Absolute Granulocytes 5.03 (1.4-6.9) x10^3/uL Basophils # 0.07 (0-0.4) x10^3/uL PT 10.4 (9.4-12.5) SECONDS INR 0.98 (0.8-3.0) APTT 25.1 (25.1-36.5) SECONDS D-Dimer (0.0-0.50) mg/L Sodium 140 (137-145) mmol/L Potassium 4.1 (3.5-5.1) mmol/L Chloride 105 (98-107) mmol/L Carbon Dioxide 24 (22-30) mmol/L Anion Gap 14.7 (5-15) MEQ/L BUN 9 (7-17) mg/dL Creatinine 0.93 (0.52-1.04) mg/dL Estimated GFR > 60.0 ML/MIN Glucose 135 H (74-106) mg/dL Calcium 8.8 (8.4-10.2) mg/dL Total Bilirubin 0.40 (0.2-1.3) mg/dL AST 47 H (14-36) U/L ALT 33 (0-35) U/L Alkaline Phosphatase 88 (38-126) U/L Troponin I (0.000-0.034) ng/mL NT-Pro-B Natriuret Pep 83.6 (0-450) pg/mL Serum Total Protein 7.8 (6.3-8.2) g/dL Albumin 4.3 (3.5-5.0) g/dL - Progress Progress: improved Progress Note: 03/05/22 14:23 ASA 324mg chewables Morphine 4mg IV/4mg IV Zofran w improvement in pain Heart Score 3 15mg IV Toradol before discharge 03/05/22 14:25 Counseled pt/family regarding: lab results, diagnosis, need for follow-up, rad results - Departure Departure Disposition: Home Clinical Impression: Chest pain Condition: Stable Critical Care Time: No Referrals: MAGO TORIBIO MD [Primary Care Provider] - Follow up/PCP as directed Instructions: Chest Pain (DC) Additional Instructions: Follow up with Dr. Toribio in 1-2 days Return to ER for increasing pain or shortness of breath
[2022-03-05] MEDS ORDERED: BABY ASPIRIN 81 MG CHEW ONE (08:53)
[2022-03-05] MEDS ORDERED: Zofran 4 MG/2 ML VIAL ONE (08:53)
[2022-03-05] MEDS ORDERED: MORPHINE SULFATE 4 MG INJ ONE (08:53)
[2022-03-05 08:56] LABS: Absolute Neutrophil Ct (ANC) 5.03 x10^3/uL (1.4-6.9); Basophil (Absolute #) 0.07 x10^3/uL (0-0.4); Eosinophil % 2.1 % (0.00-5.0); Eosinophil (Absolute #) 0.18 x10^3/uL (0-0.5); Hematocrit 38.6 % (35-47); Hemoglobin 12.5 g/dL (12.0-16.0); Lymphocyte (Absolute #) 2.61 x10^3/uL (1.0-4.6); Lymphocytes % 30.2 % (24.0-44.0); Mean Cell Volume 85.2 fL (78-100); Mean Corpuscular Hemoglobin 27.6 pg (26-32); Mean Corpuscular Hgb Concent. 32.4 g/dL (32-36); Mean Platelet Volume 9.5 fL (7.5-11.0); Monocyte (Absolute #) 0.59 x10^3/uL (0.0-1.3); Monocytes % 6.8 % (0.0-12.0); Neutrophil % 58.4 % (36.0-66.0); Platelet Count 327 x10^3/uL (150-450); Red Blood Count 4.53 x10^6/uL (4.1-5.4); Red Cell Distribution Width 14.6 % (11.5-14.0); White Blood Count 8.6 x10^3/uL (4.0-10.5)
[2022-03-05 09:11] LABS: INR 0.98 (0.8-3.0); PROTIME 10.4 SECONDS (9.4-12.5); PTT 25.1 SECONDS (25.1-36.5)
[2022-03-05 09:25] LABS: ALBUMIN 4.3 g/dL (3.5-5.0); ALKALINE PHOSPHATASE 88 U/L (38-126); ANION GAP 14.7 MEQ/L (5-15); BLOOD UREA NITROGEN 9 mg/dL (7-17); CHLORIDE 105 mmol/L (98-107); Calcium 8.8 mg/dL (8.4-10.2); Carbon Dioxide 24 mmol/L (22-30); Creatinine 1 0.93 mg/dL (0.52-1.04); EST GLOMERULAR FILTRATION RATE > 60.0 ML/MIN; Glucose 135 mg/dL (74-106); NT PRO BNP 83.6 pg/mL (0-450); Potassium 4.1 mmol/L (3.5-5.1); SGOT/AST 47 U/L (14-36); SGPT/ALT 33 U/L (0-35); SODIUM 140 mmol/L (137-145); Total Protein 7.8 g/dL (6.3-8.2)
--- NOTE | 2022-03-05 09:43 | XRAY ---
Exam: AP upright portable chest film from 03/05/2022. Comparison: AP portable chest film from 05/12/2020. Indication: 46-year-old female with chest pain. Findings: The transverse heart size is normal. The jocelyn and mediastinal structures appear unremarkable. There is moderate lower mid thoracic dextroscoliosis. The lungs reveal transverse linear stranding at both lung bases, left greater than right, consistent with plate atelectasis. No air space infiltrates, vascular congestion, pneumothorax, or pleural fluid is seen. Lateral osteophyte formation is seen within the lower thoracic spine. No other acute osseous process is seen. Impression: 1. Mild bibasilar transverse linear plate atelectasis, left greater than right. I see no air space infiltrates or other acute cardiopulmonary disease. 2. Moderate lower mid thoracic dextroscoliosis.
--- NOTE | 2022-03-05 14:01 | XRAY ---
Exam: CT of the chest with IV contrast, per PE protocol from 03/05/2022. CTDI: 51.64 mGy Comparison: No prior CT of the chest. The patient had an AP portable chest film earlier today. Indication: 46-year-old female complains of chest pain with pressure for 2 days; dizziness with elevated blood pressure and rapid heart rate with onset today. Technique: Post-IV contrast axial images were obtained through the chest using the PE protocol with 100 ML's of nonionic Isovue-370 contrast material. The first injection site was at the wrist. There did not appear to be good opacification of the distal pulmonary artery branches. Therefore, the radiation therapy technologist started a new IV within the antecubital vein and repeated the study with another 100 ML's of Isovue 370 contrast material. Reconstructed coronal and sagittal images were created and reviewed. Findings: Incidentally, the CT cigar roller film again reveals a mildly hypoinflated chest with minimal transverse plate atelectasis at the medial right lung base and the mid to lateral left lung base. There is a moderate lower mid thoracic dextroscoliosis. Surgical clips consistent with prior cholecystectomy are seen. Despite attempting the study twice from different IV sites, opacification of the pulmonary arteries beyond the distal right main and left main pulmonary arteries is relatively poor. There is not appear to be any filling defects within the main pulmonary artery segment, or right or left main pulmonary arteries. Assessment beyond this level is quite limited, although I see a bit more opacification of the proximal right and left lower lobe pulmonary arteries on the second injection, and I don't believe there is any pulmonary embolus at these sites. The other distal pulmonary artery branches are not well evaluated. The heart size is normal without pericardial effusion. No thoracic aortic aneurysm or dissection is seen. No pathological lymphadenopathy is seen within the jocelyn or mediastinum. The visualized thyroid gland appears unremarkable. The lungs reveal a tiny subpleural calcified granuloma at the posterior medial right lung apex. There is a calcified granuloma within the anterior lateral aspect of the left lower lung field. There is a tiny subpleural calcified granuloma within the right posterior lung sulcus. In addition, there is a 3 mm noncalcified nodule posterolaterally at the left lung base on image #46. There are also one or 2 tiny nodules at the lateral right lower lung field on axial images #41 and #42 which are indeterminant. Mild linear plate atelectasis is seen at both lung bases. No air space infiltrates, pneumothorax, or pleural fluid is seen. Diffuse hepatic steatosis is seen. There is a small low-attenuation lesion measuring 1.4 cm in diameter at the anterior aspect of the right hepatic lobe measuring -0.1 Hounsfield units. This probably represents a cyst. No intrahepatic biliary duct distention is seen. Surgical clips consistent with prior cholecystectomy are noted. The adrenal glands appear unremarkable. Scattered calcified granulomas are seen within the spleen. The spleen measures 15.6 cm in greatest transverse diameter suggesting mild enlargement. No focal splenic mass is seen. There are also a couple tiny calcified granulomas within the upper portion of the liver. A small exophytic cyst is partially seen at the lateral aspect of the left kidney on the most inferior image.. Pancreas appears unremarkable. In addition to lower mid moderate dextroscoliosis, there are mild degenerative changes within the mid to lower thoracic esophagus. No acute fracture or aggressive bone lesion is seen. Impression: 1. Unfortunately, the study is limited for evaluation of pulmonary embolus despite 2 separate intravenous contrast injections. I can tell that there is no pulmonary embolus within the main pulmonary artery segment, right and left main pulmonary arteries, as well as the most proximal branching descending right and left pulmonary arteries. However, the remainder of the pulmonary arteries are not opacified sufficiently to accurately evaluate for pulmonary embolus. 2. Mild bibasilar linear atelectasis is seen. 3. A few scattered tiny calcified granulomas are seen. There are also 2 or 3 tiny soft tissue lung nodules measuring up to a maximum of 3 mm in diameter. These are not significant according to Fleischner Society guidelines for incidental lung nodules. 4. Hepatic steatosis, mild splenomegaly, apparent small hepatic cyst, small exophytic left renal cyst, and evidence of prior cholecystectomy are seen. No adrenal gland abnormality is seen.
[2022-03-05] MEDS ORDERED: TORAdol 30 mg Injection IV ONE (14:20)
[2022-03-05 14:22] VITALS: BP 145/87; PULSE 66
[2022-03-05 14:26] VITALS: O2SAT 98
[2022-03-05] MEDS ORDERED: TORAdol 30 mg Injection ONE (14:29)
== END 2022-03-05 14:49 | disposition home or self-care (01) ==
LOC: ED 08:25
DX: R07.9 Chest pain, unspecified (principal); R06.00 Dyspnea, unspecified; I10 Essential (primary) hypertension; Z79.899 Other long term (current) drug therapy; Z28.310 Unvaccinated for COVID-19
CPT/HCPCS: 36000; 36415; 71045; 71260; 80053; 83880; 84484; 85025; 85379; 85610; 85730; 93005; 93041; 96374; 96375; 99284; J1885; J2270; J2405; A9270-GY